=== PATIENT | male | born 1930 | race Caucasian/White ===

== ENCOUNTER → 2016-07-21 | Outpatient (CLI) | payer OTHER ==
[~2016-07-21] MED LIST: GADOBUTROL 10 ML VIAL IVP ONE
== END ==
LOC: FIMAGING 15:16
PROVIDERS: ATTEND Physician Assistant
DX: H81.49 Vertigo of central origin, unspecified ear (principal); R93.0 Abnormal findings on diagnostic imaging of skull and head, not elsewhere classified
CPT/HCPCS: 70553; A9585

== ENCOUNTER 2016-12-07 10:28 | Inpatient (IN) | payer OTHER ==
[2016-12-07] MEDS ORDERED: THROMBIN (BOVINE) 5,000 UNIT VIAL TP ONE (10:44)
[2016-12-07] MEDS ORDERED: CALCIUM CHLORIDE 1 GM/10 ML INJ ONE (10:45)
[2016-12-07] MEDS ORDERED: POLYMYXIN B SULFATE 500,000 UNIT/10 ML SYR IRR ONE (10:45)
[2016-12-07] MEDS ORDERED: LIDOCAINE 1% 2 ML INJ ID PRN (10:45)
[2016-12-07] MEDS ORDERED: LR 1,000 ML IV ONE (10:45)
[2016-12-07] MEDS ORDERED: BACITRACIN 50,000 UNITS/10 ML SYR IRR ONE (10:45)
--- NOTE | 2016-12-07 11:17 | PDANEPAE ---
ANE History of Present Illness OA hip ANE Past Medical History - Cardiovascular History Hx Hypertension: Yes Hx Arrhythmias: Yes Hx CHF / Valvular Disease: Yes - Pulmonary History Hx COPD: No Hx Asthma/Reactive Airway Disease: No Hx Recent Upper Respiratory Infection: No Hx Oxygen in Use at Home: No Hx Sleep Apnea: No Sleep Apnea Screening Result - Last Documented: Positive - Neurologic History Hx Cerebrovascular Accident: No Hx Seizures: No Hx Dementia: No - Endocrine History Hx Diabetes: No - Renal History Hx Renal Disorders: No - Liver History Hx Hepatic Disorders: No - Neurological & Psychiatric Hx Hx Neurological and Psychiatric Disorders: No - Cancer History Hx Cancer: Yes Cancer History Comment: PROSTATE - Congenital Disorder History Hx Congenital Disorders: No - GI History Hx Gastrointestinal Disorders: No - Other Health History Other Health History: NONE, BRUISES EASILY - Chronic Pain History Chronic Pain: Yes (S I JOINT) - Surgical History Prior Surgeries: SPINAL FUSION SX ANE Review of Systems Review of Systems: - Exercise capacity METS (RN): 3 METS ANE Patient History - Allergies Allergies/Adverse Reactions: No Known Allergies Allergy (Verified 12/07/16 11:05) - Home Medications Home medications: home medication list seen and reviewed Home Medications: Metoprolol Succinate Xr [Toprol Xl 50 mg (*)] 50 mg PO DAILY 11/01/15 [Last Taken 12/07/16 08:00] C/E/Zn/Cu/OM3/DHA/EPA/LUT/ZEAX [Preservision Areds 2 Softgel] 1 each PO DAILY [Last Taken Unknown] LORazepam [Ativan (*)] 0.25 mg PO DAILY PRN 11/21/16 [Last Taken Unknown] Levothyroxine [Synthroid 100 mcg (*)] 100 mcg PO DAILY06 11/21/16 [Last Taken Unknown] Multivitamins [Multivitamin (*)] 1 each PO DAILY 11/21/16 [Last Taken Unknown] Naproxen Sodium [Aleve 220 MG (*)] 220 mg PO BID PRN 11/21/16 [Last Taken Unknown] traMADol [Ultram 50 mg (*)] 25 mg PO DAILY PRN 11/21/16 [Last Taken Unknown] - Smoking Hx Smoking Status: Never smoked - Family Anes Hx Family Hx Anesthesia Complications: NONE ANE Labs/Vital Signs - Vital Signs Height: 187.96 cm Weight: 72.575 kg ANE Physical Exam - Airway Neck exam: FROM Mallampati Score: Class 2 Mouth exam: normal dental/mouth exam - Pulmonary Pulmonary: no respiratory distress - Cardiovascular Cardiovascular: regular rate and rhythym - ASA Status ASA Status: II ANE Anesthesia Plan Anesthesia Plan: spinal
[2016-12-07] MEDS ORDERED: MIDAZOLAM 2 MG/2 ML VIAL IVP ONE (11:23)
[2016-12-07] MEDS ORDERED: PROPOFOL/EMULSION 500 MG/50 ML BOTTLE IV ONE (11:38)
[2016-12-07] MEDS ORDERED: LIDOCAINE 2% 5 ML SDV ONE (11:39)
[2016-12-07] MEDS ORDERED: BUPIVACAINE/EPI 0.5% 30 ML SDV ONE (11:41)
[2016-12-07] MEDS ORDERED: ceFAZolin 2 GM/DEXTROSE 100 ML IV ONE (11:51)
[2016-12-07] MEDS ORDERED: PREGABALIN 150 MG CAP PO ONE (11:51)
[2016-12-07] MEDS ORDERED: ACETAMINOPHEN 500 MG TAB PO ONE (11:51)
[2016-12-07] MEDS ORDERED: TRANEXAMIC ACID 3,000 MG in NS 50 ML IRR ONE (11:51)
[2016-12-07] MEDS ORDERED: ROPIVACAINE 0.2% 80 MG, EPINEPHrine 0.2 MG, KETOROLAC TROMETHAMINE 30 MG, morphINE 10 M... IU ONE (11:51)
[2016-12-07] MEDS ORDERED: CEFAZOLIN 2 GM/DEXTROSE/100 ML BAG IV ONE (11:51)
--- NOTE | 2016-12-07 11:52 | PDHPUP ---
History & Physical Update H&P update statement: This history and physical update is based on an assessment of the patient which was completed after admission or registration (within 24 hours), but prior to the surgery/procedure. H&P update: H&P reviewed & patient examined, no change in patient's condition since H&P completed
[2016-12-07] MEDS ORDERED: TRANEXAMIC ACID 3,000 MG/50 ML BAG IRR ONE (12:15)
[2016-12-07] MEDS ORDERED: MAGNESIUM HYDROXIDE 30 ML UDCUP PO PRN (14:10)
[2016-12-07] MEDS ORDERED: ONDANSETRON 4 MG/2 ML VIAL IVP PRN ×2 (14:10→14:17)
[2016-12-07] MEDS ORDERED: DIPHENOXYLATE/ATROPINE LOMOTIL 1 TAB PO PRN (14:10)
[2016-12-07] MEDS ORDERED: LACTULOSE 20 GM/30 ML UDCUP PO PRN (14:10)
[2016-12-07] MEDS ORDERED: TEMAZEPAM 15 MG CAP PO PRN (14:10)
[2016-12-07] MEDS ORDERED: METOCLOPRAMIDE 10 MG/2 ML VIAL IVP PRN (14:10)
[2016-12-07] MEDS ORDERED: oxyCODONE IR 5 MG TAB PO PRN (14:10)
[2016-12-07] MEDS ORDERED: DIAZEPAM 5 MG TAB PO PRN (14:10)
[2016-12-07] MEDS ORDERED: BISACODYL 10 MG SUPP PR PRN (14:10)
[2016-12-07] MEDS ORDERED: PROMETHAZINE HCL 25 MG SUPPR PR PRN (14:10)
[2016-12-07] MEDS ORDERED: PROMETHAZINE HCL 25 MG/ML INJ IVP PRN (14:10)
[2016-12-07] MEDS ORDERED: TAPENTADOL HCL 50 MG TAB PO PRN (14:10)
[2016-12-07] MEDS ORDERED: POLYETHYLENE GLYCOL 3350 17 GM PKT PO PRN (14:10)
[2016-12-07] MEDS ORDERED: ONDANSETRON DISINTEGRATING 4 MG TAB PO PRN (14:10)
[2016-12-07] MEDS ORDERED: diphenhydrAMINE 25 MG CAP PO PRN (14:10)
--- NOTE | 2016-12-07 14:10 | POSTOPPROG ---
Post Op Note Date of Operation: 12/07/16 Surgeon: Shivani Tinoco Buying Intern: martha Anesthesiologist: hussein Anesthesia: Epidural, IV Sedation Pre-op Diagnosis: r hip oa Procedure: r silas with fluoro Inf/Abcess present in the surg proc area at time of surgery?: No Depth: Deep Incisional (Fascial) EBL: 100-500
[2016-12-07] MEDS ORDERED: LORazepam 0.5 MG TAB PO PRN (14:12)
[2016-12-07] MEDS ORDERED: NALOXONE HCL 0.4 MG/ML INJ IVP PRN (14:17)
[2016-12-07] MEDS ORDERED: fentaNYL 100 MCG/2 ML INJ IVP PRN (14:17)
[2016-12-07] MEDS ORDERED: HYDROmorphONE/DILAUDID 1 MG/ML INJ IVP PRN (14:17)
--- NOTE | 2016-12-07 14:20 | POSTANESTH ---
Post Anesthetic Evaluation Cardiovascular Status: Normal, Stable Respiratory Status: Normal, Stable Level of Consciousness/Mental Status: Alert and Oriented, Mildly Sleepy, Arousable Pain Control: Adequate, Prn Tx Ordered Nausea/Vomiting Control: Adequate, Prn Tx Ordered Complications Possibly Related to Anesthesia: None Noted
[2016-12-07] MEDS ORDERED: LR 1,000 ML IV SCH (14:30)
[2016-12-07] MEDS ORDERED: ONDANSETRON 4 MG/2 ML VIAL ONE (14:49)
[2016-12-07] MEDS ORDERED: fentaNYL 100 MCG/2 ML INJ ONE (14:49)
--- NOTE | 2016-12-07 15:29 | GOP ---
[f rep st] OPERATIVE REPORT DATE OF OPERATION: 12/07/2016 SURGEON: Shivani Tinoco MD KETTLE HAND: Jose Josue, certified P.A., whose presence was medically necessary. ANESTHESIA: By epidural plus IV sedation. PREOPERATIVE DIAGNOSIS: Right hip osteoarthritis. POSTOPERATIVE DIAGNOSIS: Right hip osteoarthritis. PROCEDURE PERFORMED: Right total hip arthroplasty with fluoroscopy. FINDINGS: INDICATIONS: This is an 86-year-old male with a long history of right hip pain worsening with use an d with time, despite multiple conservative measures. He wishes to have surgery in order to resolve t he problem. DESCRIPTION OF PROCEDURE: The patient was brought to the operating room after the right side had bee n identified as the correct side by the patient, nurse and physician. Once in the operating room, he was given an epidural nerve block. He was then placed supine on the operating room table with a wel l-padded peroneal post and both legs placed in the leg vogt with well padded heels. Once in positi on, fluoroscopy was used to ensure proper positioning of the pelvis, at which point the arch table wa s locked into place. Once locked into place, the right hip and flank were sterilely prepped and drap ed in the usual fashion using GSI solution. Once prepped and draped, an incision was made starting 2 cm lateral and inferior to the ASIS and head ing in a 15 degree posterior direction with sharp dissection carried down through the skin and subcut aneous layers. The bleeding was controlled using electrocautery. The fascia overlying the TFL was i dentified and incised in line with its fibers, with the TFL muscle belly retracted laterally. The ba se of the fascial sheath was found to have the circumflex vessels, which were also ligated. Deeper d issection was carried over the hip capsule, with blunt Cobra retractors placed in the superior and in ferior femoral neck. Then, a pointed Hohmann was placed on the anterior portion of the acetabulum. A T-incision was made through the capsule with stay sutures placed through the inferior and superior leaves, with the Cobra retractors placed within the intra-articular portion. Oscillating saw was use d to cut across the femoral neck just above the intertrochanteric line, with the leg externally rotat ed 40 degrees and a corkscrew placed in the femoral head. The femoral head was able to be removed an d was sent to the back table. The daryaar as well as the labrum around the acetabulum were removed. Sequential reamers were used, starting at a size 48 and going up to a size 43, which was noted to have good bleeding bone and good depth. A 43 trial was noted to fit securely. Therefore, a size 54 Tritanium hemispherical cluster hole shell from [employer] was put into place with its position checked under fluoroscopy. A screw was placed into the superior and posterior portion of the cup with a manhole cover placed at its base. A t which point, a 54 x 36 polyethylene liner was placed within the shell. Once in place, the leg was externally rotated to 90 degrees. With a straight Hohmann placed in the posterior portion of the fem oral neck and a blunt Cobra retractor placed anteriorly, capsular dissection was carried on the front and superior portion of the femoral neck. Once it was adequately freed, the leg was able to be brou ght into extension and abduction. A curette was used to remove the medullary bone from the proximal portion of the femur, and a rongeur was used to remove the superior portion of the femoral neck. Seq uential broaches were then used up to a size 6, which was noted to fit securely. A trial reduction w as performed. Fluoroscopy was used to ensure proper fill of the proximal femur as well as good lengt h. The hip was then re-dislocated. It was found that therefore, a size 6, 127 degree neck Accolade II stem from [place] was put into place. Reduction was again performed to ensure proper lengthening and once this was ensured, the leg was re-dislocated, the trunnion was washed and dried, and a 36, +5 metal femoral head was put into place. Once in place, the hip was reduced. Tranexamic acid was alonso willy within the hip after a joint cocktail was injected around the posterior capsule, the anterior jonathon tabulum and the proximal femur. The capsule was then closed using 0 Vicryl suture in a qqteel-tr-fuqza type stitch to close the capsu lar layer. Plasma gel was placed intra-articularly. Zero Vicryl was then used to close the fascial sheath overlying the TFL, with plasma gel placed in the knee and fascial sheath, as well as tranexami c acid. Zero Vicryl and 2-0 Vicryl suture were then used to close subcutaneous layers, with a 3-0 V- Loc suture in a running subcuticular stitch used to close the skin. The wound was then dressed with Steri-Strips, Xeroform, 4x4s, and Tegaderm. He was completely undraped in the operating room. Both legs were taken out of leg vogt. The peroneal post was removed. His leg lengths were noted to be even. He was then transferred onto a stretcher and sent to the recovery room in good condition. /[id number]/MODL
[2016-12-07] MEDS: ACETAMINOPHEN 325 MG TAB PO SCH ×2 (18:06→23:07)
[2016-12-07] MEDS: traMADol 50 MG TAB PO SCH ×2 (18:06→23:07)
[2016-12-07] MEDS: KETOROLAC 30 MG/1 ML SDV IVP SCH ×2 (18:07→23:07)
[2016-12-07] MEDS: SENNOSIDES/DOCUSATE SODIUM TAB PO SCH (20:46)
[2016-12-07] MEDS: FAMOTIDINE 20 MG TAB PO SCH (20:46)
[2016-12-07] MEDS: ceFAZolin 2 GM/DEXTROSE 100 ML IV SCH (21:00)
[2016-12-08 05:01] LABS: HEMATOCRIT 36.4 % (40.0-51.0); HEMOGLOBIN 12.2 g/dL (13.7-17.5)
[2016-12-08] MEDS: ceFAZolin 2 GM/DEXTROSE 100 ML IV SCH (05:02)
[2016-12-08] MEDS: LEVOTHYROXINE 100 MCG TAB PO SCH (05:03)
[2016-12-08] MEDS: ACETAMINOPHEN 325 MG TAB PO SCH ×3 (05:03→17:43)
[2016-12-08] MEDS: traMADol 50 MG TAB PO SCH ×3 (05:03→17:43)
[2016-12-08] MEDS: KETOROLAC 30 MG/1 ML SDV IVP SCH ×3 (05:04→17:44)
[2016-12-08] MEDS ORDERED: LORazepam 2 MG/ML INJ IV PRN (12:35)
--- NOTE | 2016-12-08 12:41 | SOAPPROG ---
SOAP Progress Note Assessment/Plan: Assessment: Plan: - hospitalist consult -will follow 12/08/16 12:40 Subjective: Pt reporting pain this AM after swallowing breakfast. Can get water down but causes severe epigastric/eshoph pain. Objective: Vital Signs Temp Pulse Resp BP Pulse Ox 36.7 C 83 14 154/80 H 97 12/08/16 12:00 12/08/16 12:00 12/08/16 12:00 12/08/16 12:00 12/08/16 12:00 Laboratory Results 12/08/16 04:51 12/07/16 12/08/16 12/09/16 05:59 05:59 05:59 Intake Total 1600 Output Total 450 200 Balance 1150 -200 wound cdi, calf nt, nvi - Time Spent With Patient Time Spent With Patient: 20 - Pending Discharge Pending Discharge Within 24 Hours: No Pending Discharge Within 48 Hours: No ICD10 Worksheet Patient Problems: Problems Problem Status Onset Back pain Acute
[2016-12-08] MEDS: CALCIUM CARBONATE 500 MG CHEWABLE TAB PO PRN ×2 (12:57→17:38)
--- NOTE | 2016-12-08 14:50 | ASMTCMCOM ---
CM Note CM Note Notes: OT rec home vs. HHC vs. SNF, PT eval pending. Pt was not able to participate in PT due to pain. PT Jessenia alerts this CM pt may need SNF. Pt lives alone in tri-level home. CM to follow for d/c needs. Date Signed: 12/08/2016 02:50 PM Electronically Signed By:ELY Hernandez
[2016-12-08] MEDS ORDERED: NITROGLYCERIN 0.4 MG BTL SL PRN (15:06)
[2016-12-08] MEDS: RIVAROXABAN 10 MG TAB PO SCH (15:20)
[2016-12-08] MEDS: METOPROLOL SUCCINATE XR 50 MG TAB PO SCH (15:20)
[2016-12-08] MEDS: SENNOSIDES/DOCUSATE SODIUM TAB PO SCH ×2 (15:20→21:44)
[2016-12-08] MEDS: FAMOTIDINE 20 MG TAB PO SCH ×2 (15:20→21:17)
--- NOTE | 2016-12-08 15:51 | GCON ---
[f rep st] ADDENDUM: ekg (interp by me) w no ischemic changes CONSULTATION DATE OF CONSULTATION: 12/08/2016 HISTORY OF PRESENT ILLNESS: The patient is a pleasant 86-year-old gentleman with a history of atrial fibrillation, degenerative arthritis, and hypertension , who is postop day 1 from an elective hip arthroplasty. I am asked to see him to evaluate the management of suspected esophageal spasm. Patient was eating eggs and drinking water and developed some sharp pain while doing that, consistent with esophageal spasm. That was a few hours ago. He was given Ativan, and he is essentially obtunded but arousable at this point in time. He says the pain may have gone to his left jaw. He is not short of breath. He is not diaphoretic. He does not have a history of coronary disease. He notes he has had esophageal spasms which were similar in nature, although less in severity prior in his life. He states pain is well controlled from his hip arthroplasty. He does take Ativan 0.25 mg at home and he received what appears to be a milligram today. REVIEW OF SYSTEMS: Complete 10-point review of systems conducted and negative except as noted in the HPI. PAST MEDICAL HISTORY: Atrial fibrillation, hypertension, hypothyroidism, disk herniation, bladder cancer, spinal fusion, degenerative arthritis, and a prostatectomy in 1973. FAMILY HISTORY: His father had diabetes and mother had a stroke at age 66. SOCIAL HISTORY: Lives alone. Minimal alcohol. No tobacco. FAMILY HISTORY: His parents are . ALLERGIES: He has no known drug allergies. HOME MEDICATIONS: PreserVision, multivitamin, naproxen, tramadol, levothyroxine , lorazepam 0.25 daily p.r.n., metoprolol-XL 50. He is on a long list of medications that include Benadryl, Ativan, Valium, Reglan, ondansetron, and he is on DVT prophylaxis with rivaroxaban. PHYSICAL EXAMINATION: VITAL SIGNS: Temp 36.7, blood pressure 154/80, pulse 83 , breathing 14 times a minute, 97% on 2 L. GENERAL: Fairly medicated, arousable, drifting off to sleep during our conversation. HEENT: Sclerae anicteric. Oropharynx clear. Mucous membranes moist. NECK: Supple without lymphadenopathy or JVD. LUNGS: Clear to auscultation bilaterally. HEART: S1 , S2. CHEST: Soft. No crepitus. ABDOMEN: Soft, nontender, nondistended. LOWER EXTREMITIES: No edema. Calves nontender. SKIN: Without rash. NEUROLOGIC: Nonfocal. LABORATORY DATA: Hemoglobin and hematocrit are 12 and 36; his baseline is 15 and 43. Historically he has a normal BUN and creatinine. There is no imaging. I have discussed the case with Amrik Josue, the surgical PA. ASSESSMENT AND PLAN: An 86-year-old gentleman with apparent esophageal spasm. 1. Esophageal spasm: I suspect that is the answer. p.r.n. nitroglycerin would be the drug of choice for esophageal spasm. I have written him for that. 2. Chest pain in an elderly gentleman postop: I will check an EKG. I think that this is unlikely, but it is appropriate to rule out acute multiple in the setting of chest pain in an elderly gentleman. 3. Obtundation: This is medication misadventure. I have taken the liberty of discontinuing his Valium, his Ativan, his Benadryl, his temazepam, and Reglan. I will lessen his daily dose of Ativan. 4. Prophylaxis: Pharmacologic prophylaxis as you are with rivaroxaban. 5. History of atrial fibrillation: He is clinically in sinus right now. DISPOSITION: Inpatient status. Thanks this consultation. Hospital Medicine will follow. I will follow up an EKG. /[id number]/MODL MTDD
--- NOTE | 2016-12-08 16:01 | CPEKG ---
Heart Rate: 83 RR Interval: 723 P-R Interval: 168 QRSD Interval: 104 QT Interval: 380 QTC Interval: 447 P [place]: 71 QRS [place]: 60 T Wave [place]: 12 EKG Severity - NORMAL ECG - EKG Impression: SINUS RHYTHM Electronically Signed By: Lauro Garduno 08-Dec-2016 17:26:32
[2016-12-08] MEDS: NS 1,000 ML IV SCH (17:38)
[2016-12-09] MEDS: ACETAMINOPHEN 325 MG TAB PO SCH ×4 (00:35→17:48)
[2016-12-09] MEDS: traMADol 50 MG TAB PO SCH ×4 (00:35→17:46)
[2016-12-09] MEDS: KETOROLAC 30 MG/1 ML SDV IVP SCH ×4 (00:35→18:25)
[2016-12-09] MEDS: CALCIUM CARBONATE 500 MG CHEWABLE TAB PO PRN (03:06)
[2016-12-09 04:49] LABS: HEMOGLOBIN 12.8 g/dL (13.7-17.5)
[2016-12-09] MEDS: LEVOTHYROXINE 100 MCG TAB PO SCH (05:39)
[2016-12-09] MEDS: NS 1,000 ML IV SCH ×3 (05:51→21:54)
[2016-12-09] MEDS ORDERED: GLUCAGON,HUMAN RECOMBINANT 1 MG VIAL IVP ONE (10:17)
--- NOTE | 2016-12-09 10:56 | HOSPPROG ---
Hospitalist Progress Note Assessment/Plan: 86 yo M htn and af postop day 2 from elective hip arthroplasty. hosp course c/p odynophagia and delirium delirium: he was encephalopathic yesterday 2/2 ativan alert today i have dc'd many prns given age odynophagia: persists trial of ntg not successful thus far trial of glucagon pending i have discussed w GI and they will see later for possible endoscopy pain: well controlled cp: esophageal ekg non ischemic af: in sinus proph: NoAC Subjective: still w pain and odynophagia. ekg non ischemic. case d/w dr gutierrez. alert Objective: Vital Signs Temp Pulse Resp BP Pulse Ox 36.7 C 103 H 16 168/88 H 94 12/09/16 07:59 12/09/16 07:59 12/09/16 07:59 12/09/16 07:59 12/09/16 07:59 Laboratory Results 12/09/16 04:33 12/08/16 12/09/16 12/10/16 05:59 05:59 05:59 Intake Total 1600 100 250 Output Total 450 850 Balance 1150 -750 250 - Physical Exam Constitutional: no apparent distress, appears nourished Eyes: PERRL, anicteric sclera Ears, Nose, Mouth, Throat: hearing normal, No moist mucous membranes Cardiovascular: regular rate and rhythym, no murmur, rub, or gallop, No tachycardia Respiratory: no respiratory distress, no rales or rhonchi Gastrointestinal: normoactive bowel sounds, soft, non-tender abdomen Genitourinary: no bladder fullness, No mcghee in urethra Skin: warm, normal color Musculoskeletal: full muscle strength, no muscle tenderness Neurologic: AAOx3, sensation intact bilaterally Psychiatric: interacting appropriately ICD10 Worksheet Patient Problems: Problems Problem Status Onset Back pain Acute
--- NOTE | 2016-12-09 12:23 | SOAPPROG ---
[facility] Progress Note Assessment/Plan: Assessment: Plan: - awaiting endoscopy - will follow 12/08/16 12:40 12/09/16 12:23 Subjective: Still reporting esoph pain, hip is doing well Objective: Vital Signs Temp Pulse Resp BP Pulse Ox 36.7 C 103 H 16 168/88 H 94 12/09/16 07:59 12/09/16 07:59 12/09/16 07:59 12/09/16 07:59 12/09/16 07:59 Laboratory Results 12/09/16 04:33 12/08/16 12/09/16 12/10/16 05:59 05:59 05:59 Intake Total 1600 100 250 Output Total 450 850 Balance 1150 -750 250 Dressing CDI, calf NT, neg harjeet's nvi - Time Spent With Patient Time Spent With Patient: 15 - Pending Discharge Pending Discharge Within 24 Hours: No Pending Discharge Within 48 Hours: No ICD10 Worksheet Patient Problems: Problems Problem Status Onset Back pain Acute
[2016-12-09] MEDS ORDERED: LIDOCAINE 2% VISCOUS 15 ML UDCUP PO PRN ×2 (13:23→13:44)
[2016-12-09] MEDS: SENNOSIDES/DOCUSATE SODIUM TAB PO SCH ×2 (13:30→21:55)
[2016-12-09] MEDS ORDERED: MAG HYDROX/AL HYDROX/SIMETH 30 ML UDCUP PO PRN (13:43)
--- NOTE | 2016-12-09 16:10 | ASMTCMCOM ---
CM Note CM Note Notes: Pt agreeable to SNF per therapy rec, #1 choice if [facility] who will not have bed if pt d/c tomorrow but referral sent. [facility] sent referrals. Date Signed: 12/09/2016 04:09 PM Electronically Signed By:ELY Hernandez
[2016-12-09] MEDS: METOPROLOL SUCCINATE XR 50 MG TAB PO SCH (17:31)
[2016-12-09] MEDS: RIVAROXABAN 10 MG TAB PO SCH (17:33)
[2016-12-09] MEDS: FAMOTIDINE 20 MG TAB PO SCH ×2 (17:47→21:55)
--- NOTE | 2016-12-09 18:57 | GCON ---
[f rep st] CONSULTATION DATE OF CONSULTATION: 12/09/2016 REFERRING PHYSICIAN: Dr. Melendrez CHIEF COMPLAINT: Chest pain. HISTORY OF PRESENT ILLNESS: I am asked to see this patient in consultation by Dr. Melendrez for chief c omplaint of chest pain. The patient is an 86-year-old who was admitted earlier this week to undergo elective hip arthroplasty which he had obtained and then yesterday noted onset of chest pain suspecte d to be from esophageal spasm. Stated this happened while eating eggs, that he "choked," felt that t he eggs would not go down and has been having chest pain since. He denies prior history of dysphagia or GERD, although patient is somewhat sedated and it is unclear how detailed the history is. He sta akil that the pain overall is much better but he describes that he is unable to eat because it hurts. However, he is able to handle his saliva well. He states he might have had an endoscopy years ago b ut is vague about the details. ALLERGIES: No known drug allergies. HOME MEDICATIONS: Multivitamin, naproxen, tramadol, levothyroxine, lorazepam, metoprolol. He takes p.r.n. medicines including Benadryl, Ativan, Valium, Reglan. PAST MEDICAL HISTORY: Notable for atrial fibrillation, hypertension, hypothyroidism, disk herniation , bladder cancer, spinal fusion, degenerative joint disease, prostatectomy 1973. FAMILY HISTORY: Mother has stroke. Father had diabetes. SOCIAL HISTORY: He lives alone. Drinks occasional alcohol. REVIEW OF SYSTEMS: I performed a complete review of systems, which is negative except for the pertin ent positives and negatives noted above in the HPI. PHYSICAL EXAM: VITALS: 96.7, BP 165/80, pulse 103. GENERAL: The patient is drowsy but arousable. EYES: Non scleral icterus. HENT: No oral lesion. NECK: No neck crepitus. CARDIOVASCULAR: Regu lar rate, rhythm. CHEST: Clear to auscultation. ABDOMEN: Positive bowel sounds. Soft and nontend er. NEURO: Grossly nonfocal. SKIN: No rashes. LABORATORY DATA: Shows stable hemoglobin at 12.8. ASSESSMENT: Patient has acute onset of chest pain. States having odynophagia and feels that food is not going down; however, he does not have the appearance of acute food bolus impaction as he is havi ng no trouble handling his own secretions. Differential diagnosis would include esophagitis, conside r pill esophagitis, infectious such as brittny or viral or reflux. The patient could have underlying structural abnormality such as stricture or malignancy. I do agree with upper endoscopy for evaluat ion. Due to the patient's discomfort, can give a trial of GI cocktail with viscous lidocaine and Myl anta to see if this will provide relief. If not, then we will arrange for upper endoscopy. We will put patient n.p.o. other than medications. Thanks for this consult. /[id number]/MODL
[2016-12-10] MEDS: KETOROLAC 30 MG/1 ML SDV IVP SCH ×4 (00:29→17:18)
[2016-12-10] MEDS: ACETAMINOPHEN 325 MG TAB PO SCH ×3 (00:40→12:57)
[2016-12-10] MEDS: traMADol 50 MG TAB PO SCH ×4 (00:41→16:56)
[2016-12-10] MEDS: NS 1,000 ML IV SCH (04:14)
[2016-12-10] MEDS: LEVOTHYROXINE 100 MCG TAB PO SCH (05:59)
[2016-12-10] MEDS: FAMOTIDINE 20 MG TAB PO SCH ×2 (08:52→22:47)
[2016-12-10] MEDS: SENNOSIDES/DOCUSATE SODIUM TAB PO SCH ×2 (08:52→22:47)
[2016-12-10] MEDS: METOPROLOL SUCCINATE XR 50 MG TAB PO SCH (08:52)
[2016-12-10] MEDS ORDERED: LORazepam 2 MG/ML INJ IVP ONE (12:30)
--- NOTE | 2016-12-10 12:52 | ASMTCMCOM ---
CM Note CM Note Notes: Pt will have upper endoscopy today and is not ready for DC. Pt's 1st choice of SNF, [facility], currently has a bed for pt. They asked that C/M check with them prior to DC. C/M will cntinue to follow. Date Signed: 12/10/2016 12:51 PM Electronically Signed By:Latonya Quinteros LCSW
--- NOTE | 2016-12-10 13:03 | SOAPPROG ---
[facility] Progress Note Assessment/Plan: Assessment: Plan: Subjective: states his hip is sore but PT has gone well swallowing has been the real problem dressing C&D with foot NVI to endoscopy today advance diet as per GI Objective: Vital Signs Temp Pulse Resp BP Pulse Ox 36.8 C 93 20 180/106 H 94 12/10/16 11:21 12/10/16 11:21 12/10/16 11:21 12/10/16 11:21 12/10/16 11:21 Laboratory Results 12/09/16 04:33 12/09/16 12/10/16 12/11/16 05:59 05:59 05:59 Intake Total 100 3350 Output Total 850 200 Balance -750 3150 ICD10 Worksheet Patient Problems: Problems Problem Status Onset Back pain Acute
--- NOTE | 2016-12-10 13:33 | PDANEPAE ---
ANE History of Present Illness 86 yo male with difficulty swallowing since POD #1 after YANI. ANE Past Medical History - Cardiovascular History Hx Hypertension: Yes Hx Arrhythmias: Yes Hx CHF / Valvular Disease: Yes - Pulmonary History Hx COPD: No Hx Asthma/Reactive Airway Disease: No Hx Recent Upper Respiratory Infection: No Hx Oxygen in Use at Home: No Hx Sleep Apnea: No Sleep Apnea Screening Result - Last Documented: Positive - Neurologic History Hx Cerebrovascular Accident: No Hx Seizures: No Hx Dementia: No - Endocrine History Hx Diabetes: No Hypothyroid: Yes - Renal History Hx Renal Disorders: No - Liver History Hx Hepatic Disorders: No - Neurological & Psychiatric Hx Hx Neurological and Psychiatric Disorders: No - Cancer History Hx Cancer: Yes Cancer History Comment: PROSTATE - Congenital Disorder History Hx Congenital Disorders: No - GI History Hx Gastrointestinal Disorders: No - Other Health History Other Health History: NONE, BRUISES EASILY - Chronic Pain History Chronic Pain: Yes (S I JOINT) - Surgical History Prior Surgeries: SPINAL FUSION SX ANE Review of Systems Review of Systems: - Exercise capacity METS (RN): 3 METS - Systems Gastrointestinal: Reports: other (difficulty swallowing) ANE Patient History - Allergies Allergies/Adverse Reactions: No Known Allergies Allergy (Verified 12/07/16 11:05) - Home Medications Home medications: home medication list seen and reviewed Home Medications: Metoprolol Succinate Xr [Toprol Xl 50 mg (*)] 50 mg PO DAILY 11/01/15 [Last Taken 12/07/16 08:00] C/E/Zn/Cu/OM3/DHA/EPA/LUT/ZEAX [Preservision Areds 2 Softgel] 1 each PO DAILY [Last Taken Unknown] LORazepam [Ativan (*)] 0.25 mg PO DAILY PRN 11/21/16 [Last Taken Unknown] Levothyroxine [Synthroid 100 mcg (*)] 100 mcg PO DAILY06 11/21/16 [Last Taken Unknown] Multivitamins [Multivitamin (*)] 1 each PO DAILY 11/21/16 [Last Taken Unknown] Naproxen Sodium [Aleve 220 MG (*)] 220 mg PO BID PRN 11/21/16 [Last Taken Unknown] traMADol [Ultram 50 mg (*)] 25 mg PO DAILY PRN 11/21/16 [Last Taken Unknown] - NPO status NPO Since - Liquids (Date): 12/07/16 NPO Since - Liquids (Time): 09:00 NPO Since - Solids (Date): 12/10/16 NPO Since - Solids (Time): 09:00 - Anes Hx Anes Hx: no prior problems - Smoking Hx Smoking Status: Never smoked Marijuana use: No - Family Anes Hx Family Hx Anesthesia Complications: NONE ANE Labs/Vital Signs - Labs Result Diagrams: 12/09/16 04:33 - Labs - CBC HGB: anemia - Vital Signs Blood Pressure: 187/113 Heart Rate: 101 Respiratory Rate: 20 O2 Sat (%): 95 Height: 187.96 cm Weight: 72.575 kg ANE Physical Exam - Airway Neck exam: FROM Mallampati Score: Class 2 Mouth exam: normal dental/mouth exam - Pulmonary Pulmonary: clear to auscultation - Cardiovascular Cardiovascular: regular rate and rhythym - ASA Status ASA Status: III ANE Anesthesia Plan Anesthesia Plan: GA with mask Lines/Monitors: additional IV ( current 22 G PIV running slowly) Total IV Anesthesia: Yes
[2016-12-10] MEDS ORDERED: LIDOCAINE 2% 5 ML SDV ONE ×2 (13:41)
[2016-12-10] MEDS ORDERED: PROPOFOL 200 MG/20 ML VIAL ONE ×2 (13:41)
[2016-12-10] MEDS ORDERED: ROCURONIUM 50 MG/5 ML VIAL ONE (13:52)
[2016-12-10] MEDS ORDERED: SUCCINYLCHOLINE CHLORIDE*ANESTHESIA ONLY*200 MG/10 ML SYR IVP ONE (13:54)
[2016-12-10] MEDS ORDERED: PHENYLEPHRINE HCL 100 MCG/ML SYR ONE (14:07)
--- NOTE | 2016-12-10 14:47 | GIREPORT ---
[facility] Surgical Services - Endoscopy Department Patient Name: Phillip Cannon Procedure Date: 12/10/2016 1:10 PM Patient Type: Inpatient Attending MD/ ER Physician: Jayro Low MD Procedure: Upper GI endoscopy Indications: Dysphagia Providers: Jayro Low MD Medicines: General Anesthesia Complications: No immediate complications. Description of Procedure: After obtaining informed consent, the endoscope was passed under direct vision. Throughout the procedure, the patient's blood pressure, pulse, and oxygen saturations were monitored continuous ly. The Endoscope was introduced through the mouth, and advanced to the second part of duodenum. The Endoscope was introduced through the mouth, and advanced to the. The upper GI endoscopy was accomplished without difficulty. The patient tolerated the procedure well. Findings: Food was found in the middle third of the esophagus and in the lower third of the esophagus. Sco pe was removed, patient was intubated to protect his airway and therapeutic endoscope was inserted. Removal of food was accomplished via aggressive lavage and aspiration. A medium-sized hiatal hernia was present which was impacted with food; much of which was pased i nto gastric lumen with the scope tip. The entire examined stomach was normal. The examined duodenum was normal. Scope was removed and food particulate mater was aspirated clear of orophareyanx with tonsil tip suction and confirmed with enodscope. Estimated Blood Loss: Estimated blood loss: none. Post Op Diagnosis: - Food in the middle third of the esophagus and in the lower third of the esophagus. Removal was successful after aggressive lavage and aspiration. Ectatic esophagus consistant with Achalsia vs extrinsic compression of distal esophagus. - Medium-sized hiatal hernia, impacted with food; much of which was advanced into stomach. - Normal stomach. - Normal examined duodenum. Recommendation: - [facility]. - NPO. - Perform a CT scan (computed tomography) of chest with contrast and abdomen with contrast tomor row. Attending Participation: I personally performed the entire procedure. Jaryo Low MD Jayro Low MD 12/10/2016 2:47:08 PM Number of Addenda: 0 Note Initiated On: 12/10/2016 1:10 PM [email or web address]
[2016-12-10] MEDS ORDERED: ONDANSETRON 4 MG/2 ML VIAL IVP PRN (14:52)
[2016-12-10] MEDS ORDERED: NALOXONE HCL 0.4 MG/ML INJ IVP PRN (14:52)
[2016-12-10] MEDS ORDERED: fentaNYL 100 MCG/2 ML INJ IVP PRN (14:52)
--- NOTE | 2016-12-10 14:54 | POSTANESTH ---
Post Anesthetic Evaluation Cardiovascular Status: Normal, Stable Respiratory Status: Similar to Pre-op Cond., Other, See Comment (coughing) Level of Consciousness/Mental Status: Can Participate in Eval, Moderately Sleepy Pain Control: Adequate, Prn Tx Ordered Nausea/Vomiting Control: Adequate, Prn Tx Ordered Complications Possibly Related to Anesthesia: None Noted
[2016-12-10] MEDS ORDERED: LABETALOL HCL 5 MG/ML 20 ML MDV ONE (15:07)
[2016-12-10] MEDS: LABETALOL HCL 50 MG/10 ML SYR IVP PRN ×2 (15:09→15:33)
--- NOTE | 2016-12-10 16:28 | HOSPPROG ---
Hospitalist Progress Note Assessment/Plan: 86 yo M htn and af postop day 2 from elective hip arthroplasty. hosp course c/p odynophagia and delirium delirium: he was encephalopathic yesterday 2/2 ativan alert today i have dc'd many prns given age odynophagia: 2/2 food impaction and hiatal hernia npo x mouth swabs CT in AM htn: prn meds pain: well controlled cp: esophageal ekg non ischemic af: in sinus proph: switch to [facility]mwh Subjective: egd w impacted food adn hiatal hernia. case d/w dr sepulveda Objective: Vital Signs Temp Pulse Resp BP Pulse Ox 36.9 C 83 16 148/91 H 97 12/10/16 15:12 12/10/16 16:08 12/10/16 16:08 12/10/16 16:08 12/10/16 16:08 Laboratory Results 12/09/16 04:33 12/09/16 12/10/16 12/11/16 05:59 05:59 05:59 Intake Total 100 3350 600 Output Total 850 200 260 Balance -750 3150 340 - Physical Exam Constitutional: no apparent distress, appears nourished Eyes: PERRL, anicteric sclera Ears, Nose, Mouth, Throat: moist mucous membranes, hearing normal, ears appear normal Cardiovascular: regular rate and rhythym, no murmur, rub, or gallop Respiratory: no respiratory distress, no rales or rhonchi Gastrointestinal: normoactive bowel sounds, soft, non-tender abdomen Genitourinary: no bladder fullness, No mcghee in urethra Skin: warm, normal color Musculoskeletal: full muscle strength, no muscle tenderness Neurologic: AAOx3 ICD10 Worksheet Patient Problems: Problems Problem Status Onset Back pain Acute
[2016-12-10] MEDS ORDERED: hydrALAZINE 20 MG/ML VIAL IVP PRN (16:29)
[2016-12-10] MEDS: ENOXAPARIN 40 MG/0.4 ML SYR SC SCH (17:19)
[2016-12-10] MEDS: D5W 1/2 NS 1,000 ML IV SCH (17:21)
[2016-12-11] MEDS: traMADol 50 MG TAB PO SCH ×4 (01:06→19:40)
[2016-12-11] MEDS: KETOROLAC 30 MG/1 ML SDV IVP SCH ×4 (01:16→18:40)
--- NOTE | 2016-12-11 03:19 | SOAPPROG ---
SOAP Progress Note Assessment/Plan: Assessment: 1. Distal esophageal obstruction; secondary to Achalasia vs. extrinsic compression from occult tumor. Plan: 1. ABD/Chest CT this morning. 2. Consider TPN depending on results of CT. Jayro Low MD 12/11/16 03:16 Subjective: CC: esophageal obstruction. Interval HPI: Patient without further chest pain or dysphagia. Handling secretions. Hungry and weak but NPO at present. Objective: Vital Signs Temp Pulse Resp BP Pulse Ox 37.1 C 87 16 146/74 H 96 12/11/16 01:11 12/11/16 01:11 12/11/16 01:11 12/11/16 01:11 12/11/16 01:11 Laboratory Results 12/09/16 04:33 12/09/16 12/10/16 12/11/16 05:59 05:59 05:59 Intake Total 100 3350 600 Output Total 850 200 260 Balance -750 3150 340 Physical Exam - Physical Exam General Appearance: alert, no apparent distress Respiratory: lungs clear, normal breath sounds Cardiac/Chest: regular rate, rhythm Abdomen: normal bowel sounds, non-tender, soft Skin: normal color, warm/dry Neuro/Psych: normal mood/affect, oriented x 3 ICD10 Worksheet Patient Problems: Problems Problem Status Onset Back pain Acute
[2016-12-11] MEDS: D5W 1/2 NS 1,000 ML IV SCH (05:43)
[2016-12-11] MEDS: LEVOTHYROXINE 100 MCG TAB PO SCH (05:48)
[2016-12-11] MEDS: SENNOSIDES/DOCUSATE SODIUM TAB PO SCH ×2 (07:41→23:20)
[2016-12-11] MEDS: METOPROLOL SUCCINATE XR 50 MG TAB PO SCH (07:41)
[2016-12-11] MEDS: FAMOTIDINE 20 MG TAB PO SCH ×2 (07:41→23:19)
[2016-12-11] MEDS: ENOXAPARIN 40 MG/0.4 ML SYR SC SCH (08:05)
[2016-12-11 09:37] LABS: ANION GAP 7 mEq/L (8-16); CALCIUM 7.7 mg/dL (8.5-10.4); CARBON DIOXIDE 22 mEq/l (22-31); CHLORIDE 103 mEq/L (97-110); CREATININE 0.7 mg/dL (0.7-1.3); GLOMERULAR FILTRATION RATE > 60; GLUCOSE 107 mg/dL (70-100); POTASSIUM 3.2 mEq/L (3.5-5.2); SODIUM 132 mEq/L (134-144)
[2016-12-11] MEDS ORDERED: IOPAMIDOL (ISOVUE-300) 100 ML BTL ONE (10:28)
--- NOTE | 2016-12-11 12:15 | SOAPPROG ---
SOAP Progress Note Assessment/Plan: Assessment: Plan: Subjective: not in room await CT results cont PT appreciate GI help Objective: Vital Signs Temp Pulse Resp BP Pulse Ox 36.8 C 88 16 152/83 H 96 12/11/16 07:43 12/11/16 07:43 12/11/16 07:43 12/11/16 07:43 12/11/16 07:43 Laboratory Results 12/09/16 04:33 12/11/16 08:32 12/10/16 12/11/16 12/12/16 05:59 05:59 05:59 Intake Total 3350 600 Output Total 200 260 Balance 3150 340 ICD10 Worksheet Patient Problems: Problems Problem Status Onset Back pain Acute
--- NOTE | 2016-12-11 12:34 | HOSPPROG ---
Hospitalist Progress Note Assessment/Plan: 86 yo Male new to my care 12/11 with htn and af postop day 3 from elective hip arthroplasty. hosp course c/p odynophagia and delirium delirium secondary to ativan (improved) odynophagia: 2/2 food impaction and hiatal hernia npo x mouth swabs CT chest/abd/pelvis pending GI note reviewed htn: prn meds pain: well controlled cp: esophageal ekg non ischemic af: in sinus proph: lmwh dispo: start feeding soon. to snf once cleared Subjective: wants to eat. denies chest pain. feels weak from not eating Objective: Vital Signs Temp Pulse Resp BP Pulse Ox 36.8 C 82 16 164/92 H 93 12/11/16 07:43 12/11/16 12:00 12/11/16 12:00 12/11/16 12:00 12/11/16 12:00 Laboratory Results 12/09/16 04:33 12/11/16 08:32 12/10/16 12/11/16 12/12/16 05:59 05:59 05:59 Intake Total 3350 600 Output Total 200 260 Balance 3150 340 - Physical Exam Constitutional: no apparent distress, appears nourished, not in pain Cardiovascular: regular rate and rhythym, no murmur, rub, or gallop Respiratory: no respiratory distress, no rales or rhonchi, clear to auscultation Gastrointestinal: normoactive bowel sounds, No tenderness, No guarding, No rebound ICD10 Worksheet Patient Problems: Problems Problem Status Onset Back pain Acute
[2016-12-11] MEDS: LORazepam 2 MG/ML INJ IVP PRN (15:36)
[2016-12-12] MEDS: KETOROLAC 30 MG/1 ML SDV IVP SCH ×3 (00:34→12:31)
[2016-12-12] MEDS: traMADol 50 MG TAB PO SCH ×3 (00:50→12:32)
[2016-12-12] MEDS: LORazepam 2 MG/ML INJ IVP PRN (02:10)
[2016-12-12] MEDS: LEVOTHYROXINE 100 MCG TAB PO SCH (06:06)
[2016-12-12] MEDS: METOPROLOL SUCCINATE XR 50 MG TAB PO SCH (08:25)
[2016-12-12] MEDS: FAMOTIDINE 20 MG TAB PO SCH (08:59)
[2016-12-12] MEDS: SENNOSIDES/DOCUSATE SODIUM TAB PO SCH (08:59)
[2016-12-12] MEDS: ENOXAPARIN 40 MG/0.4 ML SYR SC SCH (09:00)
[2016-12-12 11:02] VITALS: PULSE 83; RESP 16; TEMP 97.7; O2SAT 94
[2016-12-12 11:03] VITALS: BP 168/103
--- NOTE | 2016-12-12 12:19 | SOAPPROG ---
[facility] Progress Note Assessment/Plan: Assessment: Plan: d/c to rehab 12/08/16 12:40 12/09/16 12:23 12/12/16 12:18 Subjective: Doing well, feels ready to go to rehab Objective: Vital Signs Temp Pulse Resp BP Pulse Ox 36.5 C 83 16 168/103 H 94 12/12/16 11:00 12/12/16 11:00 12/12/16 11:00 12/12/16 11:03 12/12/16 11:00 Laboratory Results 12/09/16 04:33 12/11/16 08:32 12/11/16 12/12/16 12/13/16 05:59 05:59 05:59 Intake Total 600 1290 240 Output Total 260 800 300 Balance 340 490 -60 dressing cdi, calf nt, nvi - Time Spent With Patient Time Spent With Patient: 15 - Pending Discharge Pending Discharge Within 24 Hours: Yes Pending Discharge Within 48 Hours: No Pending Discharge Date: 12/13/16 Pending Discharge Time: 11:00 ICD10 Worksheet Patient Problems: Problems Problem Status Onset Back pain Acute
--- NOTE | 2016-12-12 12:23 | PDIAF ---
- Diagnosis Code Status: Full Code - Medication Management Discharge Medications: Medications to Continue on Transfer Metoprolol Succinate Xr [Toprol Xl 50 mg (*)] 50 mg PO DAILY 11/01/15 [Last Taken 12/07/16 08:00] C/E/Zn/Cu/OM3/DHA/EPA/LUT/ZEAX [Preservision Areds 2 Softgel] 1 each PO DAILY [Last Taken Unknown] LORazepam [Ativan (*)] 0.25 mg PO DAILY PRN 11/21/16 [Last Taken Unknown] Levothyroxine [Synthroid 100 mcg (*)] 100 mcg PO DAILY06 11/21/16 [Last Taken Unknown] Multivitamins [Multivitamin (*)] 1 each PO DAILY 11/21/16 [Last Taken Unknown] Naproxen Sodium [Aleve 220 MG (*)] 220 mg PO BID PRN 11/21/16 [Last Taken Unknown] traMADol [Ultram 50 mg (*)] 25 mg PO DAILY PRN 11/21/16 [Last Taken Unknown] Enoxaparin [Lovenox 40 MG (*)] 40 mg SC DAILY syr 12/12/16 [Last Taken Unknown] Sennosides/Docusate Sodium [Senokot-S] 1 - 2 tab PO BID tab 12/12/16 [Last Taken Unknown] celeCOXIB [Celebrex (*)] 200 mg PO DAILY cap 12/12/16 [Last Taken Unknown] oxyCODONE IR [Oxycodone Ir (*)] 5 - 10 mg PO Q3HRS PRN tab 12/12/16 [Last Taken Unknown] traMADol [Ultram 50 mg (*)] 50 mg PO Q6HRS tab 12/12/16 [Last Taken Unknown] Discharge Medications: Refer to the Discharge Home Medication list for PRN reason. PICC Care - Routine: N/A - Orders Services needed: Physical Therapy, Occupational Therapy Diet Recommendation: no restrictions on diet Diet Texture: Dysphagia 3 - Advanced - Moist, Bite-Size Herrera: Not applicable Wound Care Instructions: Change dressing 12/14/16 to sterile occlusive dressing ( coverderm) Activity/Weight Bearing Restrictions: wbat - Follow Up Care Current Providers and Referrals: BLAZE WALLACE [Primary Care Provider] -
--- NOTE | 2016-12-12 13:57 | SOAPPROG ---
[facility] Progress Note Assessment/Plan: Assessment: Plan: 12/12/16 13:51 A/P 1. Dysphagia - s/p EGD with large food impaction seen. CT scan negative for extrinsic compression. I had a long discussion with the patient that this appears to be a chronic issue. However, he believes that this occurred due to his tramadol use. I discussed that this may be a cancer versus achalasia versus other? I did recommend a repeat EGD to ensure the correct diagnosis and if this is normal. Manometry as an outpatient. He would like to wait and see. The risks , benefits, and alternatives of the procedure were discussed in great detail. Subjective: cc: Follow up dysphagia. Feels well this am. Objective: Vital Signs Temp Pulse Resp BP Pulse Ox 36.5 C 83 16 168/103 H 94 12/12/16 11:00 12/12/16 11:00 12/12/16 11:00 12/12/16 11:03 12/12/16 11:00 Laboratory Results 12/09/16 04:33 12/11/16 08:32 12/11/16 12/12/16 12/13/16 05:59 05:59 05:59 Intake Total 600 1290 240 Output Total 260 800 300 Balance 340 490 -60 Physical Exam - Physical Exam General Appearance: alert, no apparent distress EENT: No scleral icterus (R), No scleral icterus (L) Neck: normal inspection Respiratory: lungs clear, normal breath sounds, No crackles, No rales, No rhonchi, No stridor Cardiac/Chest: regular rate, rhythm, No bradycardia, No tachycardia, No diastolic murmur, No systolic murmur Abdomen: non-tender, soft, No distended, No guarding, No rebound Skin: normal color Neuro/Psych: normal mood/affect, oriented x 3, No abnormal staff educator II-XII ICD10 Worksheet Patient Problems: Problems Problem Status Onset Back pain Acute
--- NOTE | 2016-12-12 14:30 | PDIAF ---
- Diagnosis Diagnosis: silas and dysphagia with esophageal obstruction Code Status: Full Code - Medication Management Discharge Medications: Medications to Continue on Transfer Metoprolol Succinate Xr [Toprol Xl 50 mg (*)] 50 mg PO DAILY 11/01/15 [Last Taken 12/07/16 08:00] C/E/Zn/Cu/OM3/DHA/EPA/LUT/ZEAX [Preservision Areds 2 Softgel] 1 each PO DAILY [Last Taken Unknown] LORazepam [Ativan (*)] 0.25 mg PO DAILY PRN 11/21/16 [Last Taken Unknown] Levothyroxine [Synthroid 100 mcg (*)] 100 mcg PO DAILY06 11/21/16 [Last Taken Unknown] Multivitamins [Multivitamin (*)] 1 each PO DAILY 11/21/16 [Last Taken Unknown] Naproxen Sodium [Aleve 220 MG (*)] 220 mg PO BID PRN 11/21/16 [Last Taken Unknown] traMADol [Ultram 50 mg (*)] 25 mg PO DAILY PRN 11/21/16 [Last Taken Unknown] Enoxaparin [Lovenox 40 MG (*)] 40 mg SC DAILY syr 12/12/16 [Last Taken Unknown] Lisinopril 5 mg PO DAILY #30 tablet 12/12/16 [Last Taken Unknown] Sennosides/Docusate Sodium [Senokot-S] 1 - 2 tab PO BID tab 12/12/16 [Last Taken Unknown] celeCOXIB [Celebrex (*)] 200 mg PO DAILY cap 12/12/16 [Last Taken Unknown] oxyCODONE IR [Oxycodone Ir (*)] 5 - 10 mg PO Q3HRS PRN tab 12/12/16 [Last Taken Unknown] traMADol [Ultram 50 mg (*)] 50 mg PO Q6HRS tab 12/12/16 [Last Taken Unknown] Discharge Medications: Refer to the Discharge Home Medication list for PRN reason. PICC Care - Routine: N/A - Orders Services needed: Physical Therapy, Occupational Therapy Diet Recommendation: no restrictions on diet, other (recommend full liquids and diet that is less likely to get stuck in esophogus) Diet Texture: Dysphagia 3 - Advanced - Moist, Bite-Size Herrera: Not applicable Wound Care Instructions: Change dressing 12/14/16 to sterile occlusive dressing ( coverderm) Activity/Weight Bearing Restrictions: wbat - Follow Up Care Current Providers and Referrals: BLAZE WALLACE [Primary Care Provider] -
--- NOTE | 2016-12-12 15:21 | ASMTCMCOM ---
CM Note CM Note Notes: Pt medically stable for d/c to [facility]. [facility] beds. RN to call report. Orders sent. [facility] transport set up for 1500. Transitional care to follow. Date Signed: 12/12/2016 03:20 PM Electronically Signed By:ELY Hernandez
--- NOTE | 2016-12-12 15:55 | ASDISCHSUM ---
Discharge Information Plan Status:SNF Medically Cleared to Leave: Discharge Date:12/12/2016 03:40 PM CM D/C Disposition:Halfway Facility ADT D/C Disposition:Halfway Facility Projected Discharge Date:12/12/2016 11:00 AM Transportation at D/C:Wheelchair Van Discharge Delay Reason: Follow-Up Date:12/12/2016 11:00 AM Discharge Slot: Final Diagnosis: Placement Information Referral Type:*Skilled Nursing/SNF Referral ID:[id number] Provider Name:Jade Zavaleta Address 1:[address] Phone Number: Address 2: Fax Number: City:[place] Selection Factors: State:[place] Patient Contact Information Contact Name:MATEUS Relationship:Son Address: Work Phone: City: [facility] Phone: [facility] Code: Email: Financial Information Financial Class: Primary Plan Desc:MEDICARE INPATIENT Primary Plan Number:[id number] Secondary Plan Desc:JENY PPO [employer] Secondary Plan Number:[id number] Assessment Information [facility] CM Progress Note CM Note CM Note Notes: OT rec home vs. HHC vs. SNF, PT eval pending. Pt was not able to participate in PT due to pain. PT Jessenia alerts this CM pt may need SNF. Pt lives alone in tri-level home. CM to follow for d/c needs. Date Signed: 12/08/2016 02:50 PM Electronically Signed By:ELY Hernandez [facility] CM Progress Note CM Note CM Note Notes: Pt agreeable to SNF per therapy rec, #1 choice if [facility] who will not have bed if pt d/c tomorrow but referral sent. [facility] sent referrals. Date Signed: 12/09/2016 04:09 PM Electronically Signed By:ELY Hernandez [facility] CM Progress Note CM Note CM Note Notes: Pt will have upper endoscopy today and is not ready for DC. Pt's [facility] of SNF[facility], currently has a bed for pt. They asked that C/M check with them prior to DC. C/M will cntinue to follow. Date Signed: 12/10/2016 12:51 PM Electronically Signed By:Latonya Quinteros LCSW [facility] CM Progress Note CM Note CM Note Notes: Pt medically stable for d/c to [facility]. [facility] has no beds. RN to call report. Orders sent. transport set up for 1500. Transitional care to follow. Date Signed: 12/12/2016 03:20 PM Electronically Signed By:ELY Hernandez Intervention Information Intervention Type:*IM-Signed Date of Service:12/12/2016 03:26 PM Patient Type:Inpatient Staff Member:Mallorie Allen Hours: Discipline: Severity: Comment:
--- NOTE | 2016-12-12 19:45 | GDS ---
[f rep st] DISCHARGE SUMMARY DISCHARGE DIAGNOSES: 1. Elective hip arthroplasty. 2. Resolved delirium due to Ativan. 3. Dysphagia, status post EGD with large food impaction thought to be due to cancer versus achalasia versus other. 4. Hypertension. 5. History of atrial fibrillation, now in sinus rhythm. 6. Left upper lobe nodule of the lung measuring 9 mm. CONSULTANTS: Dr. Zac Cfiuentes, GI [facility]. Dr. Shivani Tinoco, Orthopedic Surgery. HOSPITAL COURSE AND STAY BY PROBLEM: 1. Right total hip arthroplasty: The patient was taken to the operating room on 12/07/[address] Ovi Tinoco, where he had a right total hip arthroplasty. The patient has done well postoperatively. C urrently, his pain is controlled. 2. Hospital Medicine was asked to consult on 12/08/2016 for dysphagia. He was found to have esophag eal spasm. He was also obtunded at that time which was thought to be due to Ativan and affects of an esthesia. He was seen by Dr. Paulina Vega from [facility] on 12/09/2016 and underwent EGD on 12/10/2016, where he was found to have food in the middle third of the esophagus and in the lower third of the esophagus that was removed after aggressive lavage and aspiration. It was thought to b e due to achalasia versus extrinsic compression of the distal esophagus. Subsequently, a CT of the c hest and abdomen was done which did not reveal any obvious extrinsic compression. On day of discharg e, the patient was seen by GI, where the patient refused any further diagnostic procedures. He tells me that he does want to continue eating, but I did caution him that food may continue to get stuck w hich the patient seems to understand as a risk and would like to proceed with his normal diet without making changes. PHYSICAL EXAMINATION ON DAY OF DISCHARGE,: VITAL SIGNS: Blood pressure 168/103, pulse of 83, respir atory rate 16, O2 saturation 94% on room air. Temperature afebrile. GENERAL: No acute distress. H EART: S1, S2. LUNGS: Clear. ABDOMEN: Soft. EXTREMITIES: No edema. PROCEDURES DONE THIS HOSPITAL STAY: Right total hip arthroplasty done by Dr. Tinoco on 12/07/2016. EG D with removal of food in the distal esophagus by Dr. Low on 12/10/2016. DISCHARGE MEDICATIONS: Please refer to discharge medication reconciliation in [facility] for details. DISCHARGE INSTRUCTIONS: The patient will be discharged from the hospital to [facility] for further re hab. I did recommend that he stay on a full liquid diet and stay away from foods that are likely to get stuck in the esophagus. He should have a repeat chest CT in 3 to 6 months to further evaluate th e new left upper lobe nodule seen on his CT scan. He should also follow up with GI of the [facility] further workup of his dysphagia. Greater than 30 minutes was spent on the discharge of this patient. /[id number]/MODL
--- NOTE | 2016-12-14 09:36 | ASMTCMCOM ---
CM Note CM Note Notes: Jayda muro [facility] reports pt left AMA from [facility] yesterday am because he did not like the doors and rails, said they looked cheap. VM left for transitional care w update. Date Signed: 12/14/2016 09:35 AM Electronically Signed By:ELY Hernandez
== END 2016-12-12 15:40 | DRG 470 ==
LOC: F3E 10:28 → F3N 12:17
PROVIDERS: ADMIT Orthopaedic Surgery; ATTEND Orthopaedic Surgery
PROC: 0SR904Z Replacement of Right Hip Joint with Ceramic on Polyethylene Synthetic Substitute, Open Approach (ICD-10-PCS; principal; 2016-12-07 12:00)
PROC: 0DC28ZZ Extirpation of Matter from Middle Esophagus, Via Natural or Artificial Opening Endoscopic (ICD-10-PCS; 2016-12-10)
PROC: 0DC38ZZ Extirpation of Matter from Lower Esophagus, Via Natural or Artificial Opening Endoscopic (ICD-10-PCS; 2016-12-10)
DX: M16.11 Unilateral primary osteoarthritis, right hip (principal); T18.128A Food in esophagus causing other injury, initial encounter; K22.0 Achalasia of cardia; K44.0 Diaphragmatic hernia with obstruction, without gangrene; I48.91 Unspecified atrial fibrillation; I10 Essential (primary) hypertension; E03.9 Hypothyroidism, unspecified; Z98.1 Arthrodesis status; Z85.51 Personal history of malignant neoplasm of bladder
CPT/HCPCS: 97110-GP; 97116-GP; 97161-GP; 97165-GO; 97530-GP; 97535-GO; C1713; G8978-GP-CK; G8979-GP-CI; G8987-GO-CJ; G8988-GO-CI; J0171; J0330; J0360; J0690; J1610; J1650; J1885; J2060; J2250; J2370; J2405; J2704; J2795; J3010; J3490; Q9967

== ENCOUNTER 2016-12-17 06:19 | Day surgery (SDC) | payer OTHER ==
[2016-12-17] MEDS ORDERED: NS 1,000 ML IV ONE (06:25)
[2016-12-17 06:34] LABS: % IMMATURE GRANULYOCYTES 0.6 % (0.0-1.1); ABSOLUTE IMMATURE GRANULOCYTES 0.07 10^3/uL (0.00-0.10); ADD DIFF? NO; ADD MORPH? NO; ADD SCAN? NO; ATYPICAL LYMPHOCYTE FLAG 20 (0-99); FRAGMENT RBC FLAG 0 (0-99); HEMATOCRIT 37.3 % (40.0-51.0); HEMOGLOBIN 13.1 g/dL (13.7-17.5); LEFT SHIFT FLG 10 (0-99); LIPEMIA HEMOLYSIS FLAG 90 (0-99); MEAN CELL HEMOGLOBIN 30.1 pg (27.9-34.1); MEAN CELL HEMOGLOBIN CONCENTR. 35.1 g/dL (32.4-36.7); MEAN CELL VOLUME 85.7 fL (81.5-99.8); MEAN PLATELET VOLUME 9.6 fL (8.7-11.7); PLATELET CLUMPS FLAG 0 (0-99); PLATELET COUNT 330 10^3/uL (150-400); RED BLOOD CELL COUNT 4.35 10^6/uL (4.40-6.38); RED CELL DISTRIBUTION WIDTH 13.1 % (11.5-15.2)
[2016-12-17 06:43] LABS: INR 1.07 (0.83-1.16); PROTIME(PATIENT) 13.8 SEC (12.0-15.0)
[2016-12-17 06:44] LABS: APTT 30.3 SEC (23.0-38.0)
[2016-12-17 06:47] LABS: ANION GAP 15 mEq/L (8-16); CALCIUM 9.3 mg/dL (8.5-10.4); CARBON DIOXIDE 23 mEq/l (22-31); CHLORIDE 94 mEq/L (97-110); CREATININE 0.7 mg/dL (0.7-1.3); GLOMERULAR FILTRATION RATE > 60; GLUCOSE 106 mg/dL (70-100); POTASSIUM 3.8 mEq/L (3.5-5.2); SODIUM 132 mEq/L (134-144)
--- NOTE | 2016-12-17 06:56 | CPEKG ---
Heart Rate: 75 RR Interval: 800 P-R Interval: 180 QRSD Interval: 108 QT Interval: 436 QTC Interval: 487 P Deport: 79 QRS Deport: 33 T Wave Deport: -28 EKG Severity - ABNORMAL ECG - EKG Impression: INCOMPLETE ANALYSIS DUE TO MISSING DATA IN PRECORDIAL LEAD(S) EKG Impression: SINUS RHYTHM EKG Impression: PROBABLE LEFT ATRIAL ABNORMALITY EKG Impression: INCOMPLETE RIGHT BUNDLE BRANCH BLOCK EKG Impression: BORDERLINE PROLONGED QT INTERVAL Electronically Signed By: Henny Nunez 17-Dec-2016 15:42:52
[2016-12-17 06:59] LABS: CREATINE KINASE-MB FRACTION 2.04 ng/mL (0.00-3.19); TROPONIN I < 0.012 ng/mL (0.000-0.034)
--- NOTE | 2016-12-17 07:16 | EDPHY ---
HPI/HX/ROS/PE/MDM Narrative: CHIEF COMPLAINT: Difficulty breathing HISTORY OF PRESENT ILLNESS: This is an 86-year-old gentleman arriving via EMS who is 10 days status post a right hip replacement presents with esophageal discomfort and difficulty breathing which developed last night. Patient reports that while he was postop day 1, he developed severe esophageal discomfort while trying to eat. He was unable to tolerate p.o. intake. 2 days later he had a endoscope by Dr. Jayro Low on which demonstrated " esophageal plugging "with food. Per the patient this plug was removed. Patient was discharged 5 days ago. He reports he has been able tolerate liquids relatively well but has been only having 2-3 tbsp of solids at a time. Tonight he woke at midnight with severe epigastric discomfort, feeling like it was his esophagus. Discomfort continued throughout the night. He also reports developing significant shortness of breath. He denies anterior chest pain. Patient denies fevers, cough, lightheadedness, palpitations. He did report mild nausea but no vomiting. No urinary complaints. Currently on Lovenox. Has been having physical therapy at home. He reports doing quite well postoperatively No fever, chills, chest pain, shortness of breath, palpitations, vomiting, diarrhea, urinary complaints, headache, lightheadedness. REVIEW OF SYSTEMS: Aside from elements discussed in the HPI, a comprehensive 10-point review of systems was reviewed and is negative. PAST MEDICAL HISTORY: Atrial fibrillation, Hypertension, Hypothyroid, History of bladder cancer, Disk herniation, Spinal fusion (2014), Prostatectomy SOCIAL HISTORY: Lives independently. His son is helping care for him postoperatively. VITAL SIGNS: Reviewed by me. Room air sat 97%. Respiratory rate 22. GENERAL: Pleasant, elderly gentleman. No respiratory distress. HEENT: Atraumatic. Eyes: No icterus, no injection. Mouth: Very dry mucous membranes. No erythema or lesions. Neck: supple with no adenopathy. LUNGS: Bronchial breath sounds throughout. Clear. No wheezes, rhonchi or rales. CARDIAC: Regular rate and rhythm, no rubs, murmurs or gallops. ABDOMEN: Soft, nontender, nondistended, bowel sounds normal. BACK: No CVA tenderness. EXTREMITIES: No trauma. Trace edema right lower extremity. NEURO: Alert and oriented, grossly nonfocal. SKIN: Warm and dry, no rash. PSYCHIATRIC: Normal mentation, no agitation. Portions of this note were transcribed by a medical interpreter. I personally performed a history, physical exam, medical decision making, and confirmed accuracy of information the transcribed note. ED Course: 12-LEAD EKG: Please see the full report in [facility]. My interpretation: Sinus rhythm, incomplete right bundle branch block, no acute ischemic changes 86 y/o male presents with esophageal discomfort and difficulty breathing since yesterday evening. Exam reveals dry mucous membranes. Lungs are clear to auscultation. IV established. Administered 1L IV NS. Administered 4mg IV Zofran for nausea relief. Plan for labs including CBC, BMP, PTPTT, liver, lipase, BNP, and Troponin. Plan for chest x-ray. Chest x-ray negative for acute processes. Plan for CTA chest to rule out pulmonary embolism. 08:[address] Tran, radiologist. CTA negative for PE. Evidence of fibrotic streaks at lung bases bilaterally. Lung workup is negative at this point. Plan to consult with gastroenterology. 09:[address] Alexis, finisher [employer]. He recommends liquid diet only with follow-up on Monday. 09:16 Reassessed patient. Discussed outpatient followup and liquid diet precautions. The patient does not feel he will be able to manage this at home over the weekend. Also discussed the situation with the patient's son. Both patient and the son are somewhat uncomfortable with a plan for outpatient management. Case discussed again with Dr. Alexis. Dr. Alexis will arrange to do a endoscopy today. Patient transferred to endoscopy suite. Patient's course was discussed with Dr. Alexis following the endoscopy. There was no esophageal impaction noted. Patient did have a duodenal ulcer. Patient was discharged home from the endoscopy suite after recovery in PACU. MDM: Differential diagnosis for the patient's shortness of breath was considered including but not limited to pulmonary infectious processes, COPD exacerbation, pulmonary emboli, pulmonary edema, congestive heart failure, and cardiac causes. - Data Points Imaging Results: Imaging Impressions Chest X-Ray 12/17/16 06:26 Impression: 1. Stable bibasilar scarring. Chest/Thorax CTA 12/17/16 07:28 Impression: 1. No evidence of pulmonary embolus using CT protocol. 2. Arteriosclerotic calcification associated with the coronary arteries noted. Findings discussed with Henny Nunez MD at 8:53 hour, 12/17/2016. Laboratory Results: Laboratory Results 12/17/16 06:00 12/17/16 06:00 12/17/16 12/17/16 12/17/16 06:00 06:00 06:00 WBC RBC Hgb Hct MCV MCH MCHC RDW Plt Count MPV Neut % (Auto) Lymph % (Auto) [place] % (Auto) Eos % (Auto) Baso % (Auto) Nucleat RBC Rel Count Absolute Neuts (auto) Absolute Lymphs (auto) Absolute Monos (auto) Absolute Eos (auto) Absolute Basos (auto) Absolute Nucleated RBC Immature Gran % Immature Gran # PT 13.8 SEC SEC (12.0-15.0) INR 1.07 (0.83-1.16) APTT 30.3 SEC SEC (23.0-38.0) Sodium 132 mEq/L L mEq/L (134-144) Potassium 3.8 mEq/L mEq/L (3.5-5.2) Chloride 94 mEq/L L mEq/L (97-110) Carbon Dioxide 23 mEq/l mEq/l (22-31) Anion Gap 15 mEq/L mEq/L (8-16) BUN 11 mg/dL mg/dL (7-23) Creatinine 0.7 mg/dL mg/dL (0.7-1.3) Estimated GFR > 60 Glucose 106 mg/dL H mg/dL (70-100) Calcium 9.3 mg/dL mg/dL (8.5-10.4) Total Bilirubin 1.2 mg/dL mg/dL (0.1-1.4) Conjugated Bilirubin 0.4 mg/dL mg/dL (0.0-0.5) Unconjugated Bilirubin 0.8 mg/dL mg/dL (0.0-1.1) AST 33 IU/L IU/L (17-59) ALT 46 IU/L IU/L (21-72) Alkaline Phosphatase 80 IU/L IU/L (38-126) Creatine Kinase 167 IU/L IU/L (0-224) CK-MB (CK-2) Fraction 2.04 ng/mL ng/mL (0.00-3.19) Troponin I < 0.012 ng/mL ng/mL (0.000-0.034) NT-Pro-B Natriuret Pep 826 pg/mL H pg/mL (0-450) Total Protein 6.8 g/dL g/dL (6.3-8.2) Albumin 4.0 g/dL g/dL (3.5-5.0) Lipase 94 IU/L IU/L (23-300) 12/17/16 06:00 WBC 11.13 10^3/uL H 10^3/uL (3.80-9.50) RBC 4.35 10^6/uL L 10^6/uL (4.40-6.38) Hgb 13.1 g/dL L g/dL (13.7-17.5) Hct 37.3 % L % (40.0-51.0) MCV 85.7 fL fL (81.5-99.8) MCH 30.1 pg pg (27.9-34.1) MCHC 35.1 g/dL g/dL (32.4-36.7) RDW 13.1 % % (11.5-15.2) Plt Count 330 10^3/uL 10^3/uL (150-400) MPV 9.6 fL fL (8.7-11.7) Neut % (Auto) 71.1 % % (39.3-74.2) Lymph % (Auto) 20.0 % % (15.0-45.0) [place] % (Auto) 7.5 % % (4.5-13.0) Eos % (Auto) 0.3 % L % (0.6-7.6) Baso % (Auto) 0.5 % % (0.3-1.7) Nucleat RBC Rel Count 0.0 % % (0.0-0.2) Absolute Neuts (auto) 7.91 10^3/uL H 10^3/uL (1.70-6.50) Absolute Lymphs (auto) 2.23 10^3/uL 10^3/uL (1.00-3.00) Absolute Monos (auto) 0.83 10^3/uL H 10^3/uL (0.30-0.80) Absolute Eos (auto) 0.03 10^3/uL 10^3/uL (0.03-0.40) Absolute Basos (auto) 0.06 10^3/uL 10^3/uL (0.02-0.10) Absolute Nucleated RBC 0.00 10^3/uL 10^3/uL (0-0.01) Immature Gran % 0.6 % % (0.0-1.1) Immature Gran # 0.07 10^3/uL 10^3/uL (0.00-0.10) PT INR APTT Sodium Potassium Chloride Carbon Dioxide Anion Gap BUN Creatinine Estimated GFR Glucose Calcium Total Bilirubin Conjugated Bilirubin Unconjugated Bilirubin AST ALT Alkaline Phosphatase Creatine Kinase CK-MB (CK-2) Fraction Troponin I NT-Pro-B Natriuret Pep Total Protein Albumin Lipase Medications Given: Discontinued Medications Sodium Chloride (Ns) 1,000 mls @ 0 mls/hr IV EDNOW ONE; Wide Open PRN Reason: Protocol Stop: 12/17/16 06:26 Last Admin: 12/17/16 06:57 Dose: 1,000 mls Ondansetron HCl (Zofran) 4 mg IVP EDNOW ONE Stop: 12/17/16 08:25 Last Admin: 12/17/16 08:26 Dose: 4 mg General Time Seen by Provider: 12/17/16 06:58 Initial Vital Signs: Initial Vital Signs Heart Rate 97 12/17/16 06:19 Respiratory Rate 22 H 12/17/16 06:19 Blood Pressure 187/76 H 12/17/16 06:19 O2 Sat (%) 99 12/17/16 06:19 O2 Delivery Mode Room Air O2 (L/minute) 0 Allergies/Adverse Reactions: No Known Allergies Allergy (Verified 12/07/16 11:05) Home Medications: Medication Instructions Recorded Metoprolol Succinate Xr [Toprol Xl 50 mg PO DAILY 11/01/15 50 mg (*)] C/E/Zn/Cu/OM3/DHA/EPA/LUT/ZEAX 1 each PO DAILY 11/21/16 [Preservision Areds 2 Softgel] LORazepam [Ativan (*)] 0.25 mg PO DAILY PRN 11/21/16 Levothyroxine [Synthroid 100 mcg 100 mcg PO DAILY06 11/21/16 (*)] Multivitamins [Multivitamin (*)] 1 each PO DAILY 11/21/16 Naproxen Sodium [Aleve 220 MG (*)] 220 mg PO BID PRN 11/21/16 traMADol [Ultram 50 mg (*)] 25 mg PO DAILY PRN 11/21/16 Enoxaparin [Lovenox 40 MG (*)] 40 mg SC DAILY syr 12/12/16 Lisinopril 5 mg PO DAILY #30 tablet 12/12/16 Sennosides/Docusate Sodium 1 - 2 tab PO BID tab 12/12/16 [Senokot-S] celeCOXIB [Celebrex (*)] 200 mg PO DAILY cap 12/12/16 oxyCODONE IR [Oxycodone Ir (*)] 5 - 10 mg PO Q3HRS PRN tab 12/12/16 traMADol [Ultram 50 mg (*)] 50 mg PO Q6HRS tab 12/12/16 Departure - Departure Disposition: Home, Routine, Self-Care Clinical Impression: Dysphagia Qualifiers: Dysphagia type: unspecified Qualified Code(s): R13.10 - Dysphagia, unspecified Condition: Good Report Scribed for: Henny Nunez Report Scribed by: Mary Ramirez Date of Report: 12/17/16 Time of Report: 07:14
[2016-12-17] MEDS ORDERED: IOPAMIDOL (ISOVUE 370) 100 ML BTL IV ONE (07:43)
[2016-12-17 07:52] LABS: BILIRUBIN,TOTAL 1.2 mg/dL (0.1-1.4); BILIRUBIN-CONJUGATED 0.4 mg/dL (0.0-0.5); BILIRUBIN-UNCONJUGATED 0.8 mg/dL (0.0-1.1); TOTAL PROTEIN 6.8 g/dL (6.3-8.2)
[2016-12-17] MEDS ORDERED: ONDANSETRON 4 MG/2 ML VIAL ONE (08:24)
[2016-12-17] MEDS ORDERED: ONDANSETRON 4 MG/2 ML VIAL IVP ONE (08:24)
--- NOTE | 2016-12-17 11:18 | PDANEPAE ---
ANE History of Present Illness egd ANE Past Medical History - Cardiovascular History Hx Hypertension: Yes Hx Arrhythmias: Yes Hx CHF / Valvular Disease: Yes - Pulmonary History Hx COPD: No Hx Asthma/Reactive Airway Disease: No Hx Recent Upper Respiratory Infection: No Hx Oxygen in Use at Home: No Hx Sleep Apnea: No - Neurologic History Hx Cerebrovascular Accident: No Hx Seizures: No Hx Dementia: No - Endocrine History Hx Diabetes: No - Renal History Hx Renal Disorders: No - Liver History Hx Hepatic Disorders: No - Neurological & Psychiatric Hx Hx Neurological and Psychiatric Disorders: No - Cancer History Hx Cancer: Yes Cancer History Comment: PROSTATE - Congenital Disorder History Hx Congenital Disorders: No - GI History Hx Gastrointestinal Disorders: No - Other Health History Other Health History: NONE, BRUISES EASILY - Chronic Pain History Chronic Pain: Yes (S I JOINT) - Surgical History Prior Surgeries: SPINAL FUSION SX ANE Review of Systems Review of systems is: negative Review of Systems: - Exercise capacity Exercise capacity: >=4 METS ANE Patient History - Allergies Allergies/Adverse Reactions: No Known Allergies Allergy (Verified 12/07/16 11:05) - Home Medications Home medications: home medication list seen and reviewed Home Medications: Metoprolol Succinate Xr [Toprol Xl 50 mg (*)] 50 mg PO DAILY 11/01/15 [Last Taken 12/07/16 08:00] C/E/Zn/Cu/OM3/DHA/EPA/LUT/ZEAX [Preservision Areds 2 Softgel] 1 each PO DAILY [Last Taken Unknown] LORazepam [Ativan (*)] 0.25 mg PO DAILY PRN 11/21/16 [Last Taken Unknown] Levothyroxine [Synthroid 100 mcg (*)] 100 mcg PO DAILY06 11/21/16 [Last Taken Unknown] Multivitamins [Multivitamin (*)] 1 each PO DAILY 11/21/16 [Last Taken Unknown] Naproxen Sodium [Aleve 220 MG (*)] 220 mg PO BID PRN 11/21/16 [Last Taken Unknown] traMADol [Ultram 50 mg (*)] 25 mg PO DAILY PRN 11/21/16 [Last Taken Unknown] - NPO status NPO Status: no food or drink >8 hours NPO Since - Liquids (Date): 12/17/16 NPO Since - Liquids (Time): 06:00 NPO Since - Solids (Date): 10/06/17 NPO Since - Solids (Time): 20:00 - Anes Hx Anes Hx: no prior problems - Smoking Hx Smoking Status: Never smoked - Family Anes Hx Family Anes Hx: none Family Hx Anesthesia Complications: NONE ANE Labs/Vital Signs - Labs Result Diagrams: 12/17/16 06:00 12/17/16 06:00 - Vital Signs Blood Pressure: 181/102 Heart Rate: 76 Respiratory Rate: 16 O2 Sat (%): 96 Height: 187.96 cm Weight: 72.575 kg ANE Physical Exam - Airway Neck exam: FROM Mallampati Score: Class 1 Mouth exam: normal dental/mouth exam - Pulmonary Pulmonary: no respiratory distress - Cardiovascular Cardiovascular: regular rate and rhythym - ASA Status ASA Status: II, III ANE Anesthesia Plan Total IV Anesthesia: Yes
[2016-12-17] MEDS ORDERED: PROPOFOL/EMULSION 500 MG/50 ML BOTTLE IV ONE (11:31)
[2016-12-17] MEDS ORDERED: LIDOCAINE 2% 100 MG/5 ML SYR ONE (11:31)
--- NOTE | 2016-12-17 11:45 | GIREPORT ---
[facility] - Endoscopy Department Patient Name: Phillip Cannon Procedure Date: 12/17/2016 11:26 AM Patient Type: Outpatient Attending / ER Physician: Bud Alexis MD Procedure: Upper GI endoscopy Indications: Dysphagia Providers: Bud Alexis MD Medicines: Monitored Anesthesia Care Complications: No immediate complications. Description of Procedure: After obtaining informed consent, the endoscope was passed under direct vision. Throughout the procedure, the patient's blood pressure, pulse, and oxygen saturations were monitored continuous ly. The Endoscope was introduced through the mouth, and advanced to the second part of duodenum. The upper GI endoscopy was accomplished without difficulty. The patient tolerated the procedure well . Findings: The examined esophagus was significantly tortuous. The lumen of the proximal esophagus was moderately dilated. Abnormal motility was noted in the esophagus. The cricopharyngeus was normal. There is a decreas e in motility of the esophageal body. The distal esophagus/lower esophageal sphincter is open. Normal peristalsis not noted. The stomach was normal. Three non-bleeding cratered duodenal ulcers with pigmented material were found in the first port ion of the duodenum. The largest lesion was 10 mm in largest dimension. The second portion of the duodenum was normal. Estimated Blood Loss: Estimated blood loss: none. Post Op Diagnosis: - Tortuous esophagus. - Dilation in the proximal esophagus. - Abnormal esophageal motility, suspicious for achalasia. - Normal stomach. - Multiple non-bleeding duodenal ulcers with pigmented material. - Normal second portion of the duodenum. - No specimens collected. Recommendation: - Use Protonix (pantoprazole) 40 mg PO daily indefinitely. - No aspirin, ibuprofen, naproxen, or other non-steroidal anti-inflamma tory drugs. - Stop celebrex - Check serum H.pylori and treat if positive. - Outpatient esophagram and manometry will be arranged - GI f/u in 2-4 weeks after imaging. - Discharge to home. Attending Participation: I personally performed the entire procedure without the assistance of a fellow, resident or surg ical application assistant. Bud Alexis MD Bud Alexis MD 12/17/2016 11:45:15 AM Number of Addenda: 0 Note Initiated On: 12/17/2016 11:26 AM [email or web address]
[2016-12-17] MEDS ORDERED: LABETALOL HCL 50 MG/10 ML SYR IVP PRN (11:56)
[2016-12-17] MEDS ORDERED: fentaNYL 100 MCG/2 ML INJ IVP PRN (11:56)
[2016-12-17] MEDS ORDERED: ACETAMINOPHEN 500 MG TAB PO PRN (11:56)
[2016-12-17] MEDS ORDERED: NALOXONE HCL 0.4 MG/ML INJ IVP PRN (11:56)
[2016-12-17] MEDS ORDERED: ONDANSETRON 4 MG/2 ML VIAL IVP PRN (11:56)
--- NOTE | 2016-12-17 11:57 | POSTANESTH ---
Post Anesthetic Evaluation Cardiovascular Status: Similar to Pre-Op Cond Respiratory Status: Normal, Stable, Similar to Pre-op Cond. Level of Consciousness/Mental Status: Can Participate in Eval, Mildly Sleepy, Arousable Pain Control: Adequate, Prn Tx Ordered Nausea/Vomiting Control: Adequate, Prn Tx Ordered Complications Possibly Related to Anesthesia: None Noted
[2016-12-17] MEDS ORDERED: LABETALOL HCL 5 MG/ML 20 ML MDV ONE (12:31)
[2016-12-17 13:09] VITALS: TEMP 98.2
[2016-12-17 13:11] VITALS: PULSE 83
[2016-12-17 13:48] VITALS: BP 191/104; RESP 15; O2SAT 97
== END 2016-12-17 14:35 | disposition home or self-care (01) ==
LOC: EDUNIT# → FSGY 10:41
PROVIDERS: ATTEND Internal Medicine Gastroenterology
PROC: 0DJ08ZZ Inspection of Upper Intestinal Tract, Via Natural or Artificial Opening Endoscopic (ICD-10-PCS; principal; 2016-12-17 11:00)
DX: K22.8 Other specified diseases of esophagus (principal); R13.10 Dysphagia, unspecified; K26.9 Duodenal ulcer, unspecified as acute or chronic, without hemorrhage or perforation; I10 Essential (primary) hypertension; E03.9 Hypothyroidism, unspecified; Z85.51 Personal history of malignant neoplasm of bladder
CPT/HCPCS: 96374; J2001; J2405; J2704; J3490; Q9967

== ENCOUNTER → 2017-08-11 | Outpatient (CLI) | payer OTHER | LOC: FIMAGING 14:28 | PROVIDERS: ATTEND Physician Assistant | DX: M23.352 Other meniscus derangements, posterior horn of lateral meniscus, left knee (principal); M23.322 Other meniscus derangements, posterior horn of medial meniscus, left knee; M22.42 Chondromalacia patellae, left knee; M25.462 Effusion, left knee; M71.22 Synovial cyst of popliteal space [Baker], left knee ==

== ENCOUNTER → 2018-04-25 | Outpatient (CLI) | payer OTHER | LOC: FIMAGING 15:52 | DX: R90.82 White matter disease, unspecified (principal); H53.2 Diplopia ==

== ENCOUNTER 2018-04-27 10:59 | Emergency (ER) | payer OTHER ==
--- NOTE | 2018-04-27 11:29 | EDPHY ---
H & P Stated Complaint: LLQ pain Time Seen by Provider: 04/27/18 11:31 - Personal History Current Tetanus/Diphtheria Vaccine: Yes Tetanus Vaccine Date: 2010 - Medical/Surgical History Hx Asthma: No Hx Chronic Respiratory Disease: No Hx Diabetes: No Hx Cardiac Disease: No Hx Renal Disease: No Hx Cirrhosis: No Hx Alcoholism: No Hx HIV/AIDS: No Hx Splenectomy or Spleen Trauma: No Other PMH: hypothyroid, back surgery (L4,5, S1 fusion), atrial flutter 5 years ago, prostate ca/prostatectomy, R YANI,esophageal plugging?, hiatal hernia, right hip 12/28 - Social History Smoking Status: Never smoked Constitutional: Initial Vital Signs Temperature (C) 36.3 C 04/27/18 11:11 Heart Rate 76 04/27/18 11:11 Respiratory Rate 18 04/27/18 11:11 Blood Pressure 198/108 H 04/27/18 11:11 O2 Sat (%) 96 04/27/18 11:11 O2 Delivery Mode Room Air Allergies/Adverse Reactions: No Known Allergies Allergy (Verified 04/27/18 11:13) Home Medications: Medication Instructions Recorded Metoprolol Succinate Xr [Toprol Xl 50 mg PO DAILY 11/01/15 50 mg (*)] C/E/Zn/Cu/OM3/DHA/EPA/LUT/ZEAX 1 each PO DAILY 11/21/16 [Preservision Areds 2 Softgel] LORazepam [Ativan (*)] 0.25 mg PO DAILY PRN 11/21/16 Levothyroxine [Synthroid 100 mcg 100 mcg PO DAILY06 11/21/16 (*)] Multivitamins [Multivitamin (*)] 1 each PO DAILY 11/21/16 Naproxen Sodium [Aleve 220 MG (*)] 220 mg PO BID PRN 11/21/16 traMADol [Ultram 50 mg (*)] 25 mg PO DAILY PRN 11/21/16 Enoxaparin [Lovenox 40 MG (*)] 40 mg SC DAILY syr 12/12/16 Lisinopril 5 mg PO DAILY #30 tablet 12/12/16 Sennosides/Docusate Sodium 1 - 2 tab PO BID tab 12/12/16 [Senokot-S] celeCOXIB [Celebrex (*)] 200 mg PO DAILY cap 12/12/16 oxyCODONE IR [Oxycodone Ir (*)] 5 - 10 mg PO Q3HRS PRN tab 12/12/16 traMADol [Ultram 50 mg (*)] 50 mg PO Q6HRS tab 12/12/16 Medical Decision Making - Diagnostics Imaging Results: Imaging Impressions Abdomen CT 04/27/18 11:43 Impression: 1. No acute abdominopelvic process. 2. Thickening of the gastroesophageal junction, likely related to an underlying hiatal hernia and reactive to reflux. Recommend correlation with symptoms. 3. Heterogeneity of the splenic parenchyma, similar to the prior examination when accounting for differences in technique. This is of uncertain clinical significance. 4. Colonic diverticulosis. Findings and recommendations discussed with Ben Montes MD at 1330 hour, . Imaging: Discussed imaging studies w/ gut dropper Radiologist, I viewed and interpreted images myself ED Course/Re-evaluation: CHIEF COMPLAINT: Abdominal pain HISTORY OF PRESENT ILLNESS: The patient is an 87 y/o male with a history of prostatectomy arriving with his friend complaining of abdominal pain since January, 4 months ago. He first noticed a "sore place" in his let lower abdomen in January and was evaluated by his PCP, Dr. Israel, for this later that month. He did not have a hernia during that exam and his PCP thought it may be a muscle strain. Symptoms have not improved since then, but had not progressed either. Then 3-4 days ago the pain became more severe particularly during and after urination. He says at baseline, "urination for me involves using my abdominal muscles a lot" to completely empty his bladder, though it's not clear bearing down and eve his abdominal muscles causes pain in general. 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 This pain is associated with low back pain at the same level. Yesterday morning, the pain briefly spread down the top of his thighs as well. His symptoms tend to improve as he becomes more active throughout the day and are most severe when he wakes up to urinate in the middle of the night. He denies fever, chills, vomiting, diarrhea, recent trauma , or recent illness. REVIEW OF SYSTEMS: A comprehensive 10 system review of systems is otherwise negative aside from elements mentioned in the history of present illness and medical decision making. PHYSICAL EXAM: HR, BP, O2 Sat, RR. Temp noted General Appearance: Alert, well hydrated, appropriate, and non-toxic appearing. Head: Atraumatic without scalp tenderness or obvious injury Eyes: Pupils equal, round, reactive to light and accommodation, EOMI, no trauma , no injection. Nose: Atraumatic, no rhinorrhea, clear. Throat: There is no erythema or exudates, no lesions, normal tonsils, mucus membranes moist. Neck: Supple, nontender, no lymphadenopathy. Respiratory: No retractions, no distress, no wheezes, and no accessory muscle use. Lungs are clear to auscultation bilaterally. Cardiovascular: Regular rate and rhythm, no murmurs, rubs, or gallops. Good capillary refill all extremities. Gastrointestinal: Abdomen is soft, LLQ tenderness, non-distended, no masses, no rebound, no guarding, no peritoneal signs. Musculoskeletal: Normal active ROM of all extremities, atraumatic. Neurological: Alert, appropriate, and interactive. Nonfocal. Skin: No rashes, good turgor, no nodules on palpation. Past medical history: hypothyroid, atrial flutter, prostate cancer, hiatal hernia Past surgical history: Prostatectomy, L4-L5-S1 fusion, right hip repair 12/28 Family history: Noncontributory Social history: Friend at bedside. Lives in [place]. Retired. DIAGNOSTICS/PROCEDURES/CRITICAL CARE TIME: Abdominal CT: nothing acute per Dr. Jaramillo. DIFFERENTIAL DIAGNOSIS: The differential diagnosis for the patient's abdominal pain included but was not limited to appendicitis, cholecystitis, hernias, testicular torsion, gastritis, and urinary tract infection. MEDICAL DECISION MAKING: This is an 87 y/o male with a history of prostate cancer post prostatectomy who presents with a 4-month history of ongoing lower abdominal pain that became more severe and associated with urination over the last 3-4 days. He has LLQ tenderness on exam, but is otherwise well-appearing with an unremarkable exam. This could be diverticulitis. Plan for IV, labs, UA, abdominal CT, and symptomatic management. 1L IV NS ordered. He has declined pain medication. Labs unremarkable. Reassessed patient and discussed findings. I've not found an obvious or emergent cause for his symptoms today. Recommended follow up with his PCP in the next few days and suggested trying some constipation treatments as well. Return precautions discussed. He is comfortable with this plan. - Data Points Laboratory Results: Laboratory Results 04/27/18 11:45 04/27/18 11:45 04/27/18 04/27/18 04/27/18 13:00 11:52 11:45 WBC RBC Hgb POC Hgb 15.6 gm/dL gm/dL (13.7-17.5) Hct POC Hct 46 % % (40-51) MCV MCH MCHC RDW Plt Count MPV Neut % (Auto) Lymph % (Auto) [place] % (Auto) Eos % (Auto) Baso % (Auto) Nucleat RBC Rel Count Absolute Neuts (auto) Absolute Lymphs (auto) Absolute Monos (auto) Absolute Eos (auto) Absolute Basos (auto) Absolute Nucleated RBC Immature Gran % Immature Gran # POC Sodium 136 mEq/L mEq/L (135-145) Sodium 134 mEq/L L mEq/L (135-145) POC Potassium 3.9 mEq/L mEq/L (3.3-5.0) Potassium 4.2 mEq/L mEq/L (3.5-5.2) POC Chloride 101 mEq/L mEq/L (97-110) Chloride 103 mEq/L mEq/L (97-110) Carbon Dioxide 24 mEq/l mEq/l (22-31) POC Total CO2 24 mEq/L mEq/L (22-31) Anion Gap 7 mEq/L mEq/L (6-14) POC BUN 25 mg/dL H mg/dL (7-23) BUN 26 mg/dL H mg/dL (7-23) Creatinine 0.8 mg/dL mg/dL (0.7-1.3) POC Creatinine 0.9 mg/dL mg/dL (0.7-1.3) Estimated GFR > 60 Glucose 85 mg/dL mg/dL (70-100) POC Glucose 84 mg/dL mg/dL (70-100) Calcium 9.4 mg/dL mg/dL (8.5-10.4) Urine Color YELLOW Urine Appearance CLEAR Urine pH 6.0 (5.0-7.5) Ur Specific [place] 1.014 (1.002-1.030) Urine Protein NEGATIVE (NEGATIVE) Urine Ketones NEGATIVE (NEGATIVE) Urine Blood NEGATIVE (NEGATIVE) Urine Nitrate NEGATIVE (NEGATIVE) Urine Bilirubin NEGATIVE (NEGATIVE) Urine Urobilinogen NEGATIVE EU EU (0.2-1.0) Ur Leukocyte Esterase NEGATIVE (NEGATIVE) Urine RBC 1-3 /hpf /hpf (0-3) Urine WBC 1-3 /hpf /hpf (0-3) Ur Epithelial Cells NONE SEEN /lpf /lpf (NONE-1+) Urine Glucose NEGATIVE (NEGATIVE) 04/27/18 11:45 WBC 6.02 10^3/uL 10^3/uL (3.80-9.50) RBC 4.92 10^6/uL 10^6/uL (4.40-6.38) Hgb 15.0 g/dL g/dL (13.7-17.5) POC Hgb Hct 44.0 % % (40.0-51.0) POC Hct MCV 89.4 fL fL (81.5-99.8) MCH 30.5 pg pg (27.9-34.1) MCHC 34.1 g/dL g/dL (32.4-36.7) RDW 13.5 % % (11.5-15.2) Plt Count 189 10^3/uL 10^3/uL (150-400) MPV 9.9 fL fL (8.7-11.7) Neut % (Auto) 58.2 % % (39.3-74.2) Lymph % (Auto) 30.2 % % (15.0-45.0) [place] % (Auto) 9.5 % % (4.5-13.0) Eos % (Auto) 1.2 % % (0.6-7.6) Baso % (Auto) 0.7 % % (0.3-1.7) Nucleat RBC Rel Count 0.0 % % (0.0-0.2) Absolute Neuts (auto) 3.51 10^3/uL 10^3/uL (1.70-6.50) Absolute Lymphs (auto) 1.82 10^3/uL 10^3/uL (1.00-3.00) Absolute Monos (auto) 0.57 10^3/uL 10^3/uL (0.30-0.80) Absolute Eos (auto) 0.07 10^3/uL 10^3/uL (0.03-0.40) Absolute Basos (auto) 0.04 10^3/uL 10^3/uL (0.02-0.10) Absolute Nucleated RBC 0.00 10^3/uL 10^3/uL (0-0.01) Immature Gran % 0.2 % % (0.0-1.1) Immature Gran # 0.01 10^3/uL 10^3/uL (0.00-0.10) POC Sodium Sodium POC Potassium Potassium POC Chloride Chloride Carbon Dioxide POC Total CO2 Anion Gap POC BUN BUN Creatinine POC Creatinine Estimated GFR Glucose POC Glucose Calcium Urine Color Urine Appearance Urine pH Ur Specific [place] Urine Protein Urine Ketones Urine Blood Urine Nitrate Urine Bilirubin Urine Urobilinogen Ur Leukocyte Esterase Urine RBC Urine WBC Ur Epithelial Cells Urine Glucose Point of Care Test Results: Chemistry 04/27/18 11:52 POC Sodium 136 mEq/L mEq/L (135-145) POC Potassium 3.9 mEq/L mEq/L (3.3-5.0) POC Chloride 101 mEq/L mEq/L (97-110) POC Total CO2 24 mEq/L mEq/L (22-31) POC BUN 25 mg/dL H mg/dL (7-23) POC Creatinine 0.9 mg/dL mg/dL (0.7-1.3) POC Glucose 84 mg/dL mg/dL (70-100) ISTAT H&H 04/27/18 11:52 POC Hgb 15.6 gm/dL gm/dL (13.7-17.5) POC Hct 46 % % (40-51) Departure - Departure Disposition: Home, Routine, Self-Care Clinical Impression: Abdominal pain Qualifiers: Abdominal location: left lower quadrant Qualified Code(s): R10.32 - Left lower quadrant pain Condition: Good Instructions: Abdominal Pain (ED) Additional Instructions: 1. You can try to treat constipation with increasing fluid and fiber intake or something like Miralax. Use as directed on the packaging. 2. Follow up with your primary care provider in the next few days. You may require spine evaluation as this could be another source of the pain. 3. Return to the ED for any worsening of condition. Referrals: [facility] [Primary Care Provider] - As per Instructions Report Scribed for: Ben Montes Report Scribed by: Ivonne Payton Date of Report: 04/27/18 Time of Report: 11:39
[2018-04-27] MEDS ORDERED: NS 1,000 ML IV ONE (11:43)
[2018-04-27 11:57] LABS: PLATELET COUNT 189 10^3/uL (150-400)
[2018-04-27] MEDS ORDERED: IOHEXOL 300 mgI/ML (OMNIPAQUE) 150 ML BTL IV ONE (12:17)
[2018-04-27 14:05] VITALS: BP 167/85
== END 2018-04-27 14:04 | disposition home or self-care (01) ==
DX: R10.32 Left lower quadrant pain (principal); K44.9 Diaphragmatic hernia without obstruction or gangrene; E86.9 Volume depletion, unspecified; E03.9 Hypothyroidism, unspecified
CPT/HCPCS: 74177; 96360; 99285; Q9967; 82435-PO; 82565-PO; 82947-PO; 84132-PO; 84295-PO; 84520-PO; 85014-ER

== ENCOUNTER → 2018-05-24 | Outpatient (CLI) | payer OTHER | LOC: FIMAGING 12:54 ==

== ENCOUNTER → 2018-05-24 | Outpatient (CLI) | payer OTHER | LOC: FIMAGING 13:02 | PROVIDERS: ATTEND Physician Assistant | DX: M51.36 Other intervertebral disc degeneration, lumbar region (principal); M48.061 Spinal stenosis, lumbar region without neurogenic claudication; Z98.1 Arthrodesis status ==

== ENCOUNTER → 2018-06-24 | Outpatient (CLI) | payer OTHER | LOC: FIMAGING 09:00 | PROVIDERS: ATTEND Physician Assistant | DX: M54.12 Radiculopathy, cervical region (principal) ==

== ENCOUNTER 2018-08-04 12:00 | Inpatient (IN) | payer OTHER ==
[2018-08-04] MEDS ORDERED: ONDANSETRON 4 MG/2 ML VIAL IVP ONE (12:30)
[2018-08-04] MEDS ORDERED: NS 1,000 ML IV ONE (12:30)
[2018-08-04 12:40] LABS: PLATELET COUNT 232 10^3/uL (150-400)
--- NOTE | 2018-08-04 12:43 | EDPHY ---
H & P Time Seen by Provider: 08/04/18 12:10 HPI/ROS: HPI Nausea, loss of appetite, headache, generalized weakness. 88-year-old male by private vehicle with his son. This patient reports that he woke up this morning at approximately 7:00 a.m. feeling unusually fatigued in complaining of generalized weakness, nausea, loss of appetite and having a gradual onset vague and mild frontal headache. His son also reports the patient has had some word-finding difficulty. The patient endorses this and self. He denies any loss of sensation or weakness in his extremities. He has not had a cough. He denies any neck pain. No fever. No urinary complaints. ROS: Constitutional: No fever, no chills. As above. Eyes: No discharge. No changes in vision. ENT: No sore throat. No nasal congestion or rhinorrhea. Respiratory: No cough. No shortness of breath. Cardiac: No chest pain, no palpitations. Gastrointestinal: No abdominal pain, no vomiting, no diarrhea. As above. Genitourinary: No hematuria. No dysuria or increased frequency with urination. Musculoskeletal: No back pain. No neck pain. No myalgias or arthralgias. Skin: No rashes. Neurological: As above. No focal weakness or altered sensation. Past medical history: Hypothyroid, fusion surgery to the lower back years ago, recent cervical fusion surgery by Dr. Crespo about a month ago, atrial flutter, prostate cancer with prostatectomy, hiatal hernia, esophageal problems. Social history: He currently lives independently by himself but his son is with him in the room and is actively involved with his care. Nonsmoker. No alcohol. Physical Exam: General Appearance: Alert, no distress. He is hard of hearing. This patient is responding to questions appropriately and in full sentences. He intermittently has some word-finding difficulty. It is hard to tell if this is his baseline. This patient appears well-hydrated and well-nourished. Eyes: Pupils equal and round no pallor or injection. No lid edema, erythema or injection. ENT, Mouth: Mucous membranes are moist. The pharyngeal tissues are unremarkable. No edema or swelling. No asymmetry suggestive of abscess. No erythema or exudates. Respiratory: There are no retractions, lungs are clear to auscultation with good air movement bilaterally. Cardiovascular: Regular rate and rhythm. No murmur. Gastrointestinal: Abdomen is soft and nontender, no masses, bowel sounds normal. No focal tenderness at McBurney's point. No Roy sign. Neurological: Motor sensory function is grossly intact. Cranial nerves are normal. Cerebellar function is normal. Skin: Warm and dry, no rashes. Musculoskeletal: Neck is supple and nontender. No pain on flexion of his neck. No CVA tenderness bilaterally. Extremities are symmetrical. All joints range without pain or impingement. Psychiatric: No agitation. No depression. Database: EKG: EKG time is 12:37 p.m.; EKG shows a narrow complex normal sinus rhythm with a ventricular rate of 93. Atrial premature complexes noted with sinus pause. Incomplete right bundle branch block. The VT, QRS, QT intervals are within normal limits. There are no ST-T wave changes indicative of ischemic or injury pattern. No evidence of right heart strain. Interpreted by me. Imaging: CT head without contrast: No acute findings. Results were discussed with staff radiologist Dr. Jhonny Tran. Chest x-ray PA and lateral: The cardiac mediastinal silhouette is unremarkable. No evidence of infiltrate or pneumothorax. No acute cardiopulmonary disease process noted. Interpreted by me. Procedures: Emergency department course: Triage vital signs reviewed. He is mildly tachycardic at 150. He is afebrile. Vital signs are otherwise unremarkable. IV was placed. He was started on IV normal saline with 500 cc to 1 L to be given over the next hour. EKG was obtained and reviewed by myself. 1:55 p.m., patient re-evaluated, resting comfortably at this time. He reports resolution of his headache. He is still having some intermittent word-finding difficulty. Results of his CT scan and emergency department workup discussed with him and his son. Results of elevated troponin reviewed and the significance of this. He will be given 324 mg of chewed aspirin. Plan for admission discussed with him and his son. I will also obtain a diffusion- weighted noncontrast MRI of his brain to evaluate for ischemic stroke. He and his son endorse. Hospitalist paged. 2:05 p.m., spoke with on-call hospitalist, case discussed in detail. Patient will be admitted under the care of the hospitalist service, Dr. Marie to the PCU. Hospitalist service to follow up on results of MRI as ordered in the emergency department. Cardiology consultation will be obtained by the hospitalist service. Differential Diagnosis: The differential diagnosis on this patient includes but is not limited to viral syndrome, hypothyroid state, food-borne illness, CVA. This represents a partial list of diagnoses considered. These considerations are based on history , physical exam, past history, reassessment and diagnostic testing. Smoking Status: Never smoked Constitutional: Initial Vital Signs Temperature (C) 37.0 C 08/04/18 12:02 Heart Rate 115 H 08/04/18 12:02 Respiratory Rate 16 08/04/18 12:02 Blood Pressure 132/94 H 08/04/18 12:02 O2 Sat (%) 94 08/04/18 12:02 O2 Delivery Mode Room Air Allergies/Adverse Reactions: No Known Allergies Allergy (Verified 04/27/18 11:13) Home Medications: Medication Instructions Recorded Metoprolol Succinate Xr [Toprol Xl 50 mg PO DAILY 11/01/15 50 mg (*)] C/E/Zn/Cu/OM3/DHA/EPA/LUT/ZEAX 1 each PO DAILY 11/21/16 [Preservision Areds 2 Softgel] Multivitamins [Multivitamin (*)] 1 each PO DAILY 11/21/16 Naproxen Sodium [Aleve 220 MG (*)] 220 mg PO BID PRN 11/21/16 traMADol [Ultram 50 mg (*)] 25 mg PO DAILY PRN 11/21/16 Enoxaparin [Lovenox 40 MG (*)] 40 mg SC DAILY syr 12/12/16 Lisinopril 5 mg PO DAILY #30 tablet 12/12/16 Sennosides/Docusate Sodium 1 - 2 tab PO BID tab 12/12/16 [Senokot-S] celeCOXIB [Celebrex (*)] 200 mg PO DAILY cap 12/12/16 oxyCODONE IR [Oxycodone Ir (*)] 5 - 10 mg PO Q3HRS PRN tab 12/12/16 traMADol [Ultram 50 mg (*)] 50 mg PO Q6HRS tab 12/12/16 DULoxetine [Cymbalta 20 MG (RX)] 20 mg PO HS 08/04/18 LORazepam [Ativan (*)] 0.5 mg PO 08/04/18 Latanoprost 0.005% [Xalatan 0.005% 0 drops EACHEYE 08/04/18 (*)] Levothyroxine [Synthroid 125 mcg 125 mcg PO DAILY06 08/04/18 (*)] Pyridostigmine [place] [Mestinon 60 mg PO QID 08/04/18 60mg (*)] Medical Decision Making - Diagnostics Imaging Results: Imaging Impressions Chest X-Ray 08/04/18 12:31 Impression: 1. No active cardiopulmonary disease seen. Head CT 08/04/18 12:31 Impression: 1. Stable mild age-related atrophy. 2. No hemorrhage, mass effect, or definite acute peripheral infarct. 3. Stable mild nonspecific hypodensities in the white matter of bilateral cerebral hemispheres. Differential diagnosis includes microvascular ischemic disease, post-infectious/post-inflammatory sequela, atypical demyelinating disease, or migraine-related sequela. Small white matter lacunar infarcts may also have this appearance. If symptoms worsen, additional imaging may be necessary. Findings discussed with Maxwell Rose MD at 13:56 hour, 08/04/2018. - Data Points Laboratory Results: Laboratory Results 08/04/18 12:20 08/04/18 12:20 08/04/18 08/04/18 08/04/18 13:20 12:50 12:20 WBC RBC Hgb Hct MCV MCH MCHC RDW Plt Count MPV Neut % (Auto) Lymph % (Auto) [place] % (Auto) Eos % (Auto) Baso % (Auto) Nucleat RBC Rel Count Absolute Neuts (auto) Absolute Lymphs (auto) Absolute Monos (auto) Absolute Eos (auto) Absolute Basos (auto) Absolute Nucleated RBC Immature Gran % Immature Gran # PT INR APTT Sodium Potassium Chloride Carbon Dioxide Anion Gap BUN Creatinine Estimated GFR Glucose Calcium Total Bilirubin Conjugated Bilirubin Unconjugated Bilirubin AST ALT Alkaline Phosphatase POC Troponin I 0.25 ng/mL H ng/mL (0.00-0.08) Troponin I Pending Total Protein Albumin TSH Urine Color YELLOW Urine Appearance CLEAR Urine pH 7.0 (5.0-7.5) Ur Specific [place] 1.011 (1.002-1.030) Urine Protein NEGATIVE (NEGATIVE) Urine Ketones TRACE H (NEGATIVE) Urine Blood NEGATIVE (NEGATIVE) Urine Nitrate NEGATIVE (NEGATIVE) Urine Bilirubin NEGATIVE (NEGATIVE) Urine Urobilinogen NEGATIVE EU EU (0.2-1.0) Ur Leukocyte Esterase NEGATIVE (NEGATIVE) Urine RBC 1-3 /hpf /hpf (0-3) Urine WBC 1-3 /hpf /hpf (0-3) Ur Epithelial Cells NONE SEEN /lpf /lpf (NONE-1+) Urine Mucus TRACE /lpf /lpf (NONE-1+) Urine Glucose NEGATIVE (NEGATIVE) 08/04/18 08/04/18 08/04/18 12:20 12:20 12:20 WBC 8.56 10^3/uL 10^3/uL (3.80-9.50) RBC 4.73 10^6/uL 10^6/uL (4.40-6.38) Hgb 14.5 g/dL g/dL (13.7-17.5) Hct 40.9 % % (40.0-51.0) MCV 86.5 fL fL (81.5-99.8) MCH 30.7 pg pg (27.9-34.1) MCHC 35.5 g/dL g/dL (32.4-36.7) RDW 13.4 % % (11.5-15.2) Plt Count 232 10^3/uL 10^3/uL (150-400) MPV 9.5 fL fL (8.7-11.7) Neut % (Auto) 79.1 % H % (39.3-74.2) Lymph % (Auto) 14.0 % L % (15.0-45.0) [place] % (Auto) 6.1 % % (4.5-13.0) Eos % (Auto) 0.1 % L % (0.6-7.6) Baso % (Auto) 0.2 % L % (0.3-1.7) Nucleat RBC Rel Count 0.0 % % (0.0-0.2) Absolute Neuts (auto) 6.77 10^3/uL H 10^3/uL (1.70-6.50) Absolute Lymphs (auto) 1.20 10^3/uL 10^3/uL (1.00-3.00) Absolute Monos (auto) 0.52 10^3/uL 10^3/uL (0.30-0.80) Absolute Eos (auto) 0.01 10^3/uL L 10^3/uL (0.03-0.40) Absolute Basos (auto) 0.02 10^3/uL 10^3/uL (0.02-0.10) Absolute Nucleated RBC 0.00 10^3/uL 10^3/uL (0-0.01) Immature Gran % 0.5 % % (0.0-1.1) Immature Gran # 0.04 10^3/uL 10^3/uL (0.00-0.10) PT 13.0 SEC SEC (12.0-15.0) INR 1.02 (0.83-1.16) APTT 36.8 SEC SEC (23.0-38.0) Sodium 126 mEq/L L mEq/L (135-145) Potassium 4.1 mEq/L mEq/L (3.5-5.2) Chloride 92 mEq/L L mEq/L (97-110) Carbon Dioxide 23 mEq/l mEq/l (22-31) Anion Gap 11 mEq/L mEq/L (6-14) BUN 22 mg/dL mg/dL (7-23) Creatinine 0.8 mg/dL mg/dL (0.7-1.3) Estimated GFR > 60 Glucose 135 mg/dL H mg/dL (70-100) Calcium 9.5 mg/dL mg/dL (8.5-10.4) Total Bilirubin 1.0 mg/dL mg/dL (0.1-1.4) Conjugated Bilirubin 0.0 mg/dL mg/dL (0.0-0.5) Unconjugated Bilirubin 1.0 mg/dL mg/dL (0.0-1.1) AST 39 IU/L IU/L (17-59) ALT 51 IU/L IU/L (21-72) Alkaline Phosphatase 72 IU/L IU/L (38-126) POC Troponin I Troponin I Total Protein 6.8 g/dL g/dL (6.3-8.2) Albumin 4.3 g/dL g/dL (3.5-5.0) TSH 1.350 uIU/mL uIU/mL (0.465-4.680) Urine Color Urine Appearance Urine pH Ur Specific [place] Urine Protein Urine Ketones Urine Blood Urine Nitrate Urine Bilirubin Urine Urobilinogen Ur Leukocyte Esterase Urine RBC Urine WBC Ur Epithelial Cells Urine Mucus Urine Glucose Medications Given: Discontinued Medications Aspirin (Aspirin) 324 mg PO EDNOW ONE Stop: 08/04/18 13:59 Last Admin: 08/04/18 14:18 Dose: 324 mg Sodium Chloride (Ns) 1,000 mls @ 0 mls/hr IV ONCE ONE; Wide Open PRN Reason: Protocol Stop: 08/04/18 12:31 Last Admin: 08/04/18 12:50 Dose: 1,000 mls Ondansetron HCl (Zofran) 4 mg IVP EDNOW ONE Stop: 08/04/18 12:31 Last Admin: 08/04/18 12:50 Dose: 4 mg Point of Care Test Results: Chemistry 08/04/18 12:50 POC Troponin I 0.25 ng/mL H ng/mL (0.00-0.08) Departure - Departure Disposition: [facility] Inpatient Acute Clinical Impression: Generalized weakness, Elevated troponin, Hyponatremia, Word finding difficulty
[2018-08-04 12:50] LABS: INR 1.02 (0.83-1.16)
[2018-08-04] MEDS ORDERED: ASPIRIN 81 MG CHEWABLE TAB PO ONE (13:58)
[2018-08-04] MEDS ORDERED: ONDANSETRON DISINTEGRATING 4 MG TAB PO PRN (14:25)
[2018-08-04] MEDS ORDERED: ONDANSETRON 4 MG/2 ML VIAL IVP PRN (14:25)
[2018-08-04] MEDS ORDERED: ACETAMINOPHEN 325 MG TAB PO PRN (14:25)
--- NOTE | 2018-08-04 14:56 | PDGENHP ---
History and Physical - Chief Complaint Word finding diffculties - History of Present Illness Phillip Cannon is a 88 yo M with a PMHx of hypothyroidism, recent cervical fusion, A Flutter, prostate cancer s/p prostatectomy, A Flutter who presents to [facility] for word finding difficulties. He reports that he woke up this AM with a frontal headache, generalized fatigue, and word finding difficulties. His son is at bedside who has helped with hx taking. Patient reports that he has a hard time getting out his words. He denies any visual/hearing changes, muscle weakness, numbness/tingling. He endorses a continued mild frontal headache that has improved since onset. He also reports feeling more tired than usual today. He denies any f/c, d/c, edema, palpitations, chest pain. He states he had a slight sore throat yesterday which has improved, but denies a cough, rhinorrhea, f/c. He does report chronic SOB for the past year or so which he reports is worse with exertion. He denies any chronic cough or wheezing associated with SOB. History Information - Allergies/Home Medication List Allergies/Adverse Reactions: No Known Allergies Allergy (Verified 04/27/18 11:13) Home Medications: Metoprolol Succinate Xr [Toprol Xl 50 mg (*)] 50 mg PO DAILY 11/01/15 [Last Taken 08/04/18] C/E/Zn/Cu/OM3/DHA/EPA/LUT/ZEAX [Preservision Areds 2 Softgel] 1 each PO DAILY [Last Taken Unknown] Multivitamins [Multivitamin (*)] 1 each PO DAILY 11/21/16 [Last Taken 08/04/18] Naproxen Sodium [Aleve 220 MG (*)] 220 mg PO BID PRN 11/21/16 [Last Taken ] Aspirin EC [Aspirin EC 81 mg (*)] 81 mg PO DAILY@16 08/04/18 [Last Taken Unknown ] LORazepam [Ativan (*)] 0.25 mg PO DAILY PRN 08/04/18 [Last Taken Unknown] Latanoprost 0.005% [Xalatan 0.005% (*)] 1 drops EACHEYE HS 08/04/18 [Last Taken Unknown] Levothyroxine [Synthroid 125 mcg (*)] 125 mcg PO DAILY@16 08/04/18 [Last Taken Unknown] Pyridostigmine [place] [Mestinon 60mg (*)] 60 mg PO TID 08/04/18 [Last Taken Unknown] traMADol [Ultram 50 mg (*)] 12.5 mg PO Q6HRS PRN 08/04/18 [Last Taken 08/02/18] I have personally reviewed and updated: family history, medical history, social history, surgical history - Past Medical History cancer Additional medical history: Hypothyroidism, A Flutter, prostate cancer - Surgical History Reports: cancer surgery, spinal surgery - Family History Positive for: non-pertinent - Social History Smoking Status: Never smoked Alcohol Use: None Drug Use: None Review of Systems Review of Systems: ROS: 10pt was reviewed & negative except for what was stated in HPI & below Physical Exam Physical Exam: Temp Pulse Resp BP Pulse Ox 37.0 C 87 16 117/91 H 94 08/04/18 12:02 08/04/18 13:46 08/04/18 13:46 08/04/18 13:46 08/04/18 13:46 Constitutional: chronically ill appearing Eyes: PERRL Ears, Nose, Mouth, Throat: moist mucous membranes Cardiovascular: irregularly irregular, No edema Respiratory: no respiratory distress, clear to auscultation Gastrointestinal: soft, non-tender abdomen Genitourinary: no bladder fullness Skin: warm Musculoskeletal: full muscle strength Neurologic: AAOx3, CN II-XII Intact, No weakness, No numbness, No facial droop Psychiatric: interacting appropriately, poor memory Lab Data & Imaging Review 08/04/18 12:20 08/04/18 12:20 WBC 8.56 10^3/uL (3.80-9.50) 08/04/18 12:20 RBC 4.73 10^6/uL (4.40-6.38) 08/04/18 12:20 Hgb 14.5 g/dL (13.7-17.5) 08/04/18 12:20 Hct 40.9 % (40.0-51.0) 08/04/18 12:20 MCV 86.5 fL (81.5-99.8) 08/04/18 12:20 MCH 30.7 pg (27.9-34.1) 08/04/18 12:20 MCHC 35.5 g/dL (32.4-36.7) 08/04/18 12:20 RDW 13.4 % (11.5-15.2) 08/04/18 12:20 Plt Count 232 10^3/uL (150-400) 08/04/18 12:20 MPV 9.5 fL (8.7-11.7) 08/04/18 12:20 Neut % (Auto) 79.1 % (39.3-74.2) H 08/04/18 12:20 Lymph % (Auto) 14.0 % (15.0-45.0) L 08/04/18 12:20 [place] % (Auto) 6.1 % (4.5-13.0) 08/04/18 12:20 Eos % (Auto) 0.1 % (0.6-7.6) L 08/04/18 12:20 Baso % (Auto) 0.2 % (0.3-1.7) L 08/04/18 12:20 Nucleat RBC Rel Count 0.0 % (0.0-0.2) 08/04/18 12:20 Absolute Neuts (auto) 6.77 10^3/uL (1.70-6.50) H 08/04/18 12:20 Absolute Lymphs (auto) 1.20 10^3/uL (1.00-3.00) 08/04/18 12:20 Absolute Monos (auto) 0.52 10^3/uL (0.30-0.80) 08/04/18 12:20 Absolute Eos (auto) 0.01 10^3/uL (0.03-0.40) L 08/04/18 12:20 Absolute Basos (auto) 0.02 10^3/uL (0.02-0.10) 08/04/18 12:20 Absolute Nucleated RBC 0.00 10^3/uL (0-0.01) 08/04/18 12:20 Immature Gran % 0.5 % (0.0-1.1) 08/04/18 12:20 Immature Gran # 0.04 10^3/uL (0.00-0.10) 08/04/18 12:20 PT 13.0 SEC (12.0-15.0) 08/04/18 12:20 INR 1.02 (0.83-1.16) 08/04/18 12:20 APTT 36.8 SEC (23.0-38.0) 08/04/18 12:20 Sodium 126 mEq/L (135-145) L 08/04/18 12:20 Potassium 4.1 mEq/L (3.5-5.2) 08/04/18 12:20 Chloride 92 mEq/L (97-110) L 08/04/18 12:20 Carbon Dioxide 23 mEq/l (22-31) 08/04/18 12:20 Anion Gap 11 mEq/L (6-14) 08/04/18 12:20 BUN 22 mg/dL (7-23) 08/04/18 12:20 Creatinine 0.8 mg/dL (0.7-1.3) 08/04/18 12:20 Estimated GFR > 60 08/04/18 12:20 Glucose 135 mg/dL (70-100) H 08/04/18 12:20 Calcium 9.5 mg/dL (8.5-10.4) 08/04/18 12:20 Total Bilirubin 1.0 mg/dL (0.1-1.4) 08/04/18 12:20 Conjugated Bilirubin 0.0 mg/dL (0.0-0.5) 08/04/18 12:20 Unconjugated Bilirubin 1.0 mg/dL (0.0-1.1) 08/04/18 12:20 AST 39 IU/L (17-59) 08/04/18 12:20 ALT 51 IU/L (21-72) 08/04/18 12:20 Alkaline Phosphatase 72 IU/L (38-126) 08/04/18 12:20 POC Troponin I 0.25 ng/mL (0.00-0.08) H 08/04/18 12:50 Troponin I 0.268 ng/mL (0.000-0.034) H 08/04/18 12:20 Total Protein 6.8 g/dL (6.3-8.2) 08/04/18 12:20 Albumin 4.3 g/dL (3.5-5.0) 08/04/18 12:20 TSH 1.350 uIU/mL (0.465-4.680) 08/04/18 12:20 Urine Color YELLOW 08/04/18 13:20 Urine Appearance CLEAR 08/04/18 13:20 Urine pH 7.0 (5.0-7.5) 08/04/18 13:20 Ur Specific [place] 1.011 (1.002-1.030) 08/04/18 13:20 Urine Protein NEGATIVE (NEGATIVE) 08/04/18 13:20 Urine Ketones TRACE (NEGATIVE) H 08/04/18 13:20 Urine Blood NEGATIVE (NEGATIVE) 08/04/18 13:20 Urine Nitrate NEGATIVE (NEGATIVE) 08/04/18 13:20 Urine Bilirubin NEGATIVE (NEGATIVE) 08/04/18 13:20 Urine Urobilinogen NEGATIVE EU (0.2-1.0) 08/04/18 13:20 Ur Leukocyte Esterase NEGATIVE (NEGATIVE) 08/04/18 13:20 Urine RBC 1-3 /hpf (0-3) 08/04/18 13:20 Urine WBC 1-3 /hpf (0-3) 08/04/18 13:20 Ur Epithelial Cells NONE SEEN /lpf (NONE-1+) 08/04/18 13:20 Urine Mucus TRACE /lpf (NONE-1+) 08/04/18 13:20 Urine Glucose NEGATIVE (NEGATIVE) 08/04/18 13:20 Assessment & Plan Assessment: Word finding difficulty (Acute) - Started at approx. 7 AM this morning with associated fatigue, nausea, frontal GURROLA - Continued upon admission, out of window for tPA (>4.5 hours since symptom onset) - Differential includes TIA vs. CVA vs. Temporary Expressive Aphasia vs. Medications (on tramadol, ativan at home) vs. Ongoing dementia - CT Head w/o IVC on admission with no acute findings, reports stable mild hypodensities in white matter b/l - MRI brain pending to further evaluate - Neurology consult placed for further evaluation and management - Will continue ASA 81 mg, check Lipid panel, initiate Statin if indicated - TTE ordered as well Elevated troponin (Acute) - POC Trop 0.25, repeat Trop 0.268, representing myocardial ischemia vs. ischemic stroke - Patient denies any chest pain/discomfort, does report sore throat? - No hx of CAD per patient - Discussed with Cardiology, Dr. Reyna, who recommends initiating anticoagulation with Hep gtt, perform TTE, and trend cardiac enzymes, he will see patient in the AM - Continue ASA 81 mg Generalized weakness (Acute) - Possibly in setting of CVA vs. myocardial ischemia, workups as above - PT/OT/REAL ESTATE LEASING MANAGER ordered to further evaluate Hyponatremia (Acute) - Na 126 on admission, reports low Na diet at home - Appears chronic, s/p 1L NS in the ED - Will repeat in the AM A Flutter - Appears to be in A Flutter on admission - Continue home Metoprolol - AC as above with Heparin gtt, consider transitioning to oral AC for CHADsVasc ~2 given age - Monitor on telemetry Hypothyroidism - Continue home Synthroid - TSH WNL on admission FEN: NPO until MRI, Regular if no concerning findings DVT PPx: Heparin gtt if MRI showing no hemorrhagic component Code: DNR Dispo: Admit to Observation
--- NOTE | 2018-08-04 14:58 | ASMTCMCOM ---
CM Note CM Note Notes: Pt presented to the Emergency Department with complaints of generalized weakness, nausea and a headache. Chart reviewed. History includes hypothyroid, cervical fusion, back pain, aflutter, prostate cancer with prostatectomy, dysphagia and a hiatal hernia. Pt is single and lives independently. He is accompanied by his son. Pt to be admitted for further observation and evaluation. Discharge needs remain unclear at this time. CM will continue to follow. Discharge Plan: To be determined Date Signed: 08/04/2018 02:57 PM Electronically Signed By:Erica Bergman RN
[2018-08-04] MEDS ORDERED: traMADol 50 MG TAB PO PRN (15:16)
[2018-08-04] MEDS ORDERED: HEPARIN 10,000 UNIT/10 ML MDV (1,000 UNIT/ML) IVP PRN (16:37)
[2018-08-04] MEDS: PYRIDOSTIGMINE BROMIDE 60 MG TAB PO SCH ×2 (17:09→20:46)
[2018-08-04] MEDS: LEVOTHYROXINE 125 MCG TAB PO SCH (17:09)
[2018-08-04] MEDS: hydrALAZINE 20 MG/ML VIAL IVP PRN (17:15)
[2018-08-04] MEDS: METOPROLOL SUCCINATE XR 50 MG TAB PO SCH (17:19)
[2018-08-04] MEDS: HEPARIN/DEXTROSE 500 ML IV SCH (17:20)
[2018-08-04] MEDS: LATANOPROST 0.005% 2.5 ML OPHT DROPS EACHEYE SCH (20:46)
[2018-08-05] MEDS ORDERED: ENOXAPARIN 40 MG/0.4 ML SYR SC SCH (09:00)
[2018-08-05] MEDS ORDERED: METOPROLOL SUCCINATE XR 50 MG TAB PO SCH (09:00)
[2018-08-05] MEDS: PRESERVISION AREDS2 FORMULA EYE VIT 1 EACH PO SCH (09:21)
[2018-08-05] MEDS: PYRIDOSTIGMINE BROMIDE 60 MG TAB PO SCH ×3 (09:21→20:37)
[2018-08-05] MEDS: ASPIRIN 81 MG CHEWABLE TAB PO SCH (09:21)
[2018-08-05] MEDS: METOPROLOL SUCCINATE XR 50 MG TAB PO SCH (09:21)
--- NOTE | 2018-08-05 12:27 | ECHO ---
[email or web address] [address] [address] Main: [phone] Echocardiography Examination Transthoracic Name: JAMA LYNN MR#: [id number] Study Date: 08/05/2018 Study Time: 10:52 AM Date of : 1930 Age: 88 year(s) Height: 185.4 cm (73 in.) Weight: 70.31 kg (155 lb.) BSA: 1.93 m2 Gender: Male Examination: Echo Contrast: Image Quality: Fair Rhythm: Normal sinus rhythm Heart Rate: 75 bpm BP: / Indication: Shortness of breath Procedure Staff Referring Physician: Workers Compensation Paralegal: Marco A Meza RDCS Reading Physician: Neftali Reyna MD Requesting Provider: Ordering Physician: Mayo Marie Indication: Shortness of breath Measurements Chambers AV/MV Label Value Normal Value Label Value Normal Value LVOT Vmax 0.74 m/s (0.7m/s - 1.1m/s) AV PGmax 5 mmHg LVOT VTI 17.1 cm (18cm - 22cm) AV PGmean 3 mmHg LVDd, MM 4.4 cm (4.2cm - 5.9cm) AV Vmax 1.09 m/s LVDd, 2D 4.3 cm (4.2cm - 5.9cm) MV E Vmax 0.61 m/s LVDs, MM 3 cm (2cm - 3.8cm) MV A Vmax 0.38 m/s LVDs, 2D 3.1 cm (2.1cm - 4cm) MV E/A 1.61 IVSd, MM 1 cm (0.6cm - 0.9cm) MV E/E' lateral 6.7 IVSd, 2D 0.9 cm (0.6cm - 1.1cm) MV E/E' septal 12.8 (0.45 - 1.25) LVPWd, MM 1.1 cm (0.6cm - 1cm) MV E' septal 0.05 m/s LVPWd, 2D 1 cm (0.6cm - 1cm) MR Vmax 3.87 m/s LVEF, 2D 52 % (54% - 74%) MV E' lateral 0.09 m/s LVOT PGmean 1 mmHg MV E/E' mean 8.71 LVOT Vmean 0.51 m/s MV E' mean 0.07 m/s LADs, 2D 3.3 cm (3cm - 4cm) TV/PV Additional Vessels Label Value Normal Value Label Value Normal Value RA Pressure 5 mmHg AoRoot, MM 2.7 cm (2.2cm - 3.7cm) RVSP 32 mmHg TR Pmax 27 mmHg TR Vmax 2.61 m/s Patient: JAMA LYNN Study Date: 08/05/2018 Page 1 of 2 10:52 AM Conclusions Normal LV function, LVEF 65%. Trivial MR and TR. No pericardial effusion. Findings Left Ventricle: Off axis views were obtained due to pectus excavatum. . Left ventricle is normal in size. The EF is visually estimated to be 65 %. Left ventricle wall thickness is normal. Diastolic Dysfunction is indeterminate. Right Ventricle: Normal size right ventricle. Right ventricular systolic function is normal. Left Atrium: The left atrium is normal in size. Right Atrium: The right atrium size is at the upper limits of normal. Mitral Valve: Mitral valve appears structurally normal. Trivial to mild mitral regurgitation. Aortic Valve: Aortic leaflets are normal in appearance and function. No aortic valve regurgitation. There is no aortic stenosis. Tricuspid Valve: Tricuspid valve leaflets are structurally normal. Trivial tricuspid regurgitation. Right Ventricular systolic pressure is measured at 32 mmHg. Pulmonary artery pressure normal. Pulmonic Valve: Pulmonic leaflets are structurally normal. No pulmonic valve regurgitation is evident. Aorta: The aorta is normal. The aortic root size in M-mode measures 2.7 cm. Aorta Measurements AoRoot, MM is 2.7 cm. Pericardium: No pericardial effusion. Exam Details Procedure Ordered: Echo Image Quality: Fair (No Signature Object) Patient: JAMA LYNN Study Date: 08/05/2018 Page 2 of 2 10:52 AM [id number]
--- NOTE | 2018-08-05 14:31 | HOSPPROG ---
Hospitalist Progress Note Assessment/Plan: Elevated troponin (Acute) - POC Trop 0.25, repeat Trop 0.268 on admission trended down to 0.11 this AM - Patient denies any chest pain/discomfort, does report sore throat? - No hx of CAD per patient - Discussed with Cardiology, Dr. Reyna, who recommended continuing anticoagulation with Hep gtt, will perform MPS in the AM to further evaluate for ischemia - Continue ASA 81 mg Word finding difficulty (Acute) - Started at approx. 7 AM on morning of admission with associated fatigue, nausea, frontal GURROLA - Continued upon admission, out of window for tPA (>4.5 hours since symptom onset) - Differential includes TIA vs. CVA vs. Temporary Expressive Aphasia vs. Medications (on tramadol, ativan at home) vs. Ongoing dementia - CT Head w/o IVC on admission with no acute findings, reports stable mild hypodensities in white matter b/l - MRI brain performed with no acute findings - Neurology consulted this AM, discussed with Dr. Mtz, no further w/u indicated at this time - Will continue ASA 81 mg Generalized weakness (Acute) - Possibly in setting of CVA vs. myocardial ischemia, workups as above - PT/OT/CARBONATING STONE CLEANER ordered to further evaluate Hyponatremia (Acute) - Na 126 on admission, reports low Na diet at home, improved to 132 this AM - Appears chronic, s/p 1L NS in the ED - continue to monitor A Flutter - Continue home Metoprolol - AC as above with Heparin gtt, consider transitioning to oral AC for CHADsVasc ~2 given age - Monitor on telemetry Hypothyroidism - Continue home Synthroid - TSH WNL on admission FEN: Regular DVT PPx: Heparin gtt Code: FULL Dispo: Pending clinical course Subjective: Pt reports improvement in word finding difficultuies this AM Objective: Vital Signs Temp Pulse Resp BP Pulse Ox 36.9 C 75 15 159/89 H 97 08/05/18 06:26 08/05/18 12:00 08/05/18 12:00 08/05/18 12:00 08/05/18 12:00 Laboratory Results 08/05/18 03:30 08/05/18 03:30 08/04/18 08/05/18 08/06/18 05:59 05:59 05:59 Intake Total 1550 Output Total 1100 Balance 450 PT 13.0 SEC (12.0-15.0) 08/04/18 12:20 INR 1.02 (0.83-1.16) 08/04/18 12:20 - Physical Exam Constitutional: no apparent distress Eyes: PERRL Ears, Nose, Mouth, Throat: moist mucous membranes Cardiovascular: regular rate and rhythym Respiratory: no respiratory distress Gastrointestinal: soft, non-tender abdomen Genitourinary: no bladder fullness Skin: warm Musculoskeletal: full muscle strength Neurologic: AAOx3, CN II-XII Intact Psychiatric: interacting appropriately ICD10 Worksheet Patient Problems: Problems Problem Status Onset Elevated troponin Acute Generalized weakness Acute Hyponatremia Acute Word finding difficulty Acute Back pain Acute Dysphagia Acute chronic disease mgmt/transitional care Acute
--- NOTE | 2018-08-05 14:37 | GCON ---
[f rep st] CONSULTATION NEUROLOGIC CONSULTATION REFERRING PHYSICIAN: Mayo Marie DO HISTORY: The patient is an 88-year-old gentleman who I am asked to see in neurologic consultation re garding some changes yesterday when he woke up around 7 a.m. in which he said he felt globally weak a nd was having a little trouble with some word finding. This was confirmed by his son at the time. Margo duff is not currently in the room. The patient has had evaluations within our practice over the last 3 years for various degrees of weakness and unsteadiness. I have reviewed all the office records from Dr. 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 He has also had neuro muscular consultations at the [facility] with nonspecific EMG findings and some degree of peripheral neuropat hy is known. He has cervical and lumbar spine disease and has had surgical treatment for above with the cervical more recently. There has been a feeling that some of his unsteadiness is multifactorial in nature with neuropathy and possible radiculopathy or myelopathic changes. Since admission, he does not continue to express any significant headache or word-finding problems an d feels essentially back to his baseline. He had some mild hyponatremia on admission, which is not m ore than a few points lower than what he has often run over the last several years. He was thought t o have possible atrial flutter, although that is equivocal from the reporting I am getting so far. [facility] emergency room doctor did not see atrial flutter and the cardiac nurse practitioner, so far, says she does not see atrial flutter on monitor, but is just evaluating him. In the interim, however, he was placed on heparin infusion and continuing on aspirin for now which he was on prior to coming to [facility]. The Mestinon is something he has taken intermittently over the last few years for the p ossibility of a neuromuscular junction defect, specifically the question of a presynaptic defect asso ciated with Lambert-Eaton syndrome; however, the benefit of that is unclear. He is not currently com plaining of any double vision. He is on tramadol for pain. He says he has not had any escalation in doses of medication. ALLERGIES: None. PAST MEDICAL HISTORY: As outlined above. Also, prostate cancer, hypothyroidism. SOCIAL HISTORY: No smoking or alcohol or drug use. 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. He is . His son is his closest contact currently. He is inde pendent. REVIEW OF SYSTEMS: 10-point review of systems unremarkable except for that noted above. PHYSICAL EXAM: VITAL SIGNS: Highest documented blood pressure has been 210/123, but currently 114/6 6, temperature 36.9. Heart rate of 70, respirations 15. Currently in sinus rhythm on monitor. GENE RAL: He is well developed, in no acute distress. NECK: Supple. No bruits or masses. CARDIAC: Re gular rate and rhythm. No murmur. GENERAL: He is awake, alert, oriented and able to communicate ef fectively with no obvious cognitive impairment. HEENT: Pupils 3 mm and reactive. Extraocular movem ents intact. Normal facial sensation and strength. NEURO: Motor exam: Normal muscle bulk and tone with minimal proximal weakness. He has some distal sensory deficits. Reflexes hypoactive. STUDIES: Head CT and MRI show nonspecific white matter changes, but no evidence of hemorrhage or acu te stroke. His is LDL cholesterol 85. The troponin on admission 0.268 is decreased now to 0.11. Ur inalysis unremarkable. Unremarkable CBC. Patient's NIH Stroke Scale is 0. IMPRESSION: Total unit time is 70 minutes. This patient had experienced a change yesterday morning when he woke up where he had some global weakness and a little bit of word-finding difficulties witho ut focal neurologic complaints otherwise. His symptoms have now resolved back to baseline. A transi ent ischemic attack is a possibility, although I think that may be less likely than mild nonspecific encephalopathy with some hyponatremia. He would not want to pursue endarterectomy or procedures such as that, so I do not think we need to do further vascular imaging. With the equivocal history, I do not feel statin therapy is clearly indicated. With regard to the cardiac status, unless Cardiology feels there is definite atrial flutter or rhythm disturbance, then I would not say he has to have ful l anticoagulation from a neurologic standpoint. I would recommend daily aspirin continue. His neuro muscular condition has also been equivocal without definitive diagnosis of Lambert-Eaton syndrome and the feeling is that it probably is not that after multiple evaluations and more recent repeatedly ne gative antibody testing for defect of neuromuscular transmission. I would agree that some of his uns teadiness is likely multifactorial with peripheral neuropathy on exam as well as his history of lumba r spine disease. He has had hip replacement and also cervical spine disease. Overall, I think he ca n be discharged from a neurologic standpoint, but defer to Cardiology and the medicine team for the n eed of any other workup. He can follow up as an outpatient with Dr. Brody for neurologic questions in the future. I will sign off but please contact me with any further questions. /[id number]
[2018-08-05] MEDS: LEVOTHYROXINE 125 MCG TAB PO SCH (16:04)
[2018-08-05] MEDS: HEPARIN/DEXTROSE 500 ML IV SCH (16:04)
--- NOTE | 2018-08-05 16:59 | GCON ---
[f rep st] CONSULTATION DATE OF CONSULTATION: 08/05/2018 INDICATIONS: Dr. Marie has asked us to evaluate patient due to elevated troponins and possible arrhythmia. HISTORY OF PRESENT ILLNESS: The patient is an 88-year-old man with a history of hypothyroidism, cervical fusion, prostate cancer status post prostatectomy, possible atrial flutter. He presented to the ER yesterday morning with a general feeling of fatigue and weakness as well as a headache and word finding difficulty. He reports that on Monday he felt like he was coming down with a virus. He had a sore throat and he felt generally "foggy." Then Monday morning he woke up with a headache and more fatigue. He himself said that he did not notice word finding difficulty. However, his son thought that his word finding difficulty was more pronounced than usual. He denies any other focal neurological symptoms such as paralysis, weakness, numbness, tingling or vision changes. He has not had any kind of chest pain, pressure, tightness or shortness of breath. He denies any lower extremity edema. He does, however, admit to not doing too much exercise. He has not had any symptoms of a GI illness nor symptoms of urinary tract infection such as pain, burning, frequency or hematuria. He started feeling better yesterday evening as his dinner arrived. He feels pretty much back to his normal baseline today. 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 ALLERGIES: No known allergies. HOME MEDICATIONS: Metoprolol succinate 50 mg daily. PreserVision daily. Multivitamin daily. Naproxen twice a day p.r.n. Aspirin 81 mg daily. Lorazepam 0.25 mg p.r.n. Latanoprost 0.005% 1 drop each eye. Levothyroxine 125 mcg daily. Mestinon 60 mg p.o. three times daily. REVIEW OF SYSTEMS: 10-point review of systems negative except for what is included in the HPI. PHYSICAL EXAMINATION: VITAL SIGNS: Blood pressure is 125/69, heart rate is 80 , temperature is 36.9, O2 saturation on room air is 93%. GENERAL: He is alert and oriented, sitting up in bed, in no acute distress. NECK: Supple. Carotid pulses +2 bilaterally. No bruits appreciated. CARDIAC: He has pectus excavatum. Regular rate and rhythm without a murmur, rub, or gallop. LUNGS: Clear to auscultation. ABDOMEN: Soft and nontender. EXTREMITIES: Warm. No discoloration. No lower extremity edema. NEUROLOGICAL: He is alert and oriented x3. No weakness. No facial droop. Appropriate affect. LAB WORK: Labs: TSH is 1.35, WBC is 6.86, hemoglobin is 12, hematocrit 34, platelets 181. Sodium 132, potassium 3.6, chloride 103, bicarb 23, BUN 25, creatinine is 0.8. Glucose is 99. Total cholesterol is 153, triglycerides are 37, LDL is 85, HDL is 61. Troponin is 0.268, and 0.111 and the 3rd one is pending. A head CT without IVC demonstrates no acute findings and stable mild hypodensities bilaterally. Brain MRI demonstrates no acute injury. There is white matter change bilaterally and generalized cerebral atrophy. EKG demonstrates sinus rhythm with PACs and incomplete right bundle branch block , heart rate of 93 beats per minute and no acute ST-T wave changes. Chest x-ray: No acute cardiopulmonary process. Echocardiogram demonstrates normal ejection fraction of 65% with trivial MR and TR. ASSESSMENT AND PLAN: 1. Word finding difficulty of unknown etiology. Differential diagnosis includes TIA versus CVA, although head scans do not indicate a CVA or acute process. so these are less likely. Potentially symptoms are related to hyponatremia. He did present with a sodium of 126; however, his usual sodium is in the [id number]. He is feeling better and has no word finding issues today or other neurological symptoms. 2. Elevated troponin. Differential diagnosis includes myocardial ischemia versus ischemic stroke. He has not had any chest pain or shortness of breath. His EKG does not demonstrate any acute ST-T wave changes. His echocardiogram does not demonstrate any wall motion abnormalities and he has a normal ejection fraction. Plan is to keep him overnight and do a Lexiscan stress test for further risk stratification in the morning. He will remain on heparin gtt due to elevated troponins. 3. History of atrial fibrillation. He has been seen by Dr. Mcdonough at [facility] in the past; the last visit was June 08, 2011. In this note, atrial fibrillation is noted as a history; however, there is no documentation of how this was diagnosed. His EKG in the ER demonstrated sinus rhythm with PACs. His telemetry has not demonstrated any atrial flutter or atrial fibrillation. He is at risk for this given his age. Consider long-term monitoring as an outpatient. He is currently on heparin which we will keep him on overnight due to his elevated troponins. 4. Hyponatremia. His sodium has increased back to his baseline of 132. Patient history, assessment and plan were all reviewed with Dr. Reyna. 60 minutes spent with patient and reviewing records. /[id number]/MODL MTDD
[2018-08-05] MEDS: LATANOPROST 0.005% 2.5 ML OPHT DROPS EACHEYE SCH (20:37)
--- NOTE | 2018-08-05 21:40 | PDMN ---
Medical Necessity Medical necessity: Pt meets IP criteria as of 08/05/2018 per and FERNANDO MG-N ( Neurology [facility]); los > 2 mn for ongoing workup of word finding difficulty, generalized weakness, hyponatremia, and elevated troponin; requiring cardiology consultation, neurology consultation, serial labs, heparin gtt, and PT/OT/DIRECT SERVICE PROVIDER. Hx atrial flutter and hypothyroidism.
--- NOTE | 2018-08-05 23:41 | CPEKG ---
Test Reason : OPEN Blood Pressure : / mmHG Vent. Rate : 093 BPM Atrial Rate : 090 BPM P-R Int : 194 ms QRS Dur : 115 ms QT Int : 363 ms P-R-T Axes : 064 039 269 degrees QTc Int : 452 ms Sinus rhythm Atrial premature complexes Sinus pause Incomplete right bundle branch block Confirmed by Maxwell Rose ([id number] on 08/05/2018 11:41:07 PM Referred By: Maxwell Rose Confirmed By:Maxwell Rose
[2018-08-06 07:31] VITALS: BP 184/101
[2018-08-06] MEDS: ASPIRIN 81 MG CHEWABLE TAB PO SCH (07:45)
[2018-08-06] MEDS: PRESERVISION AREDS2 FORMULA EYE VIT 1 EACH PO SCH (07:45)
[2018-08-06] MEDS: PYRIDOSTIGMINE BROMIDE 60 MG TAB PO SCH (07:45)
[2018-08-06] MEDS: hydrALAZINE 20 MG/ML VIAL IVP PRN (07:45)
[2018-08-06] MEDS: METOPROLOL SUCCINATE XR 50 MG TAB PO SCH (07:45)
[2018-08-06] MEDS ORDERED: REGADENOSON 0.4 MG/5 ML SYR IVP ONE (09:52)
--- NOTE | 2018-08-06 10:22 | PDCARPN ---
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 On admission, he is found to have mildly elevated troponin at 0.268 on arrival. EKG with questionable AF. My interpretation shows SR with iRBBB, and PACs. Echo from this admission shows pectus excavatum abnormality, EF 65, trivial- mild MR, RVSP 32. Plan: #. Word finding difficulty (Acute) TIA vs. CVA vs. Temporary Expressive Aphasia vs. Medications (on tramadol, ativan at home) CT head and brain MRI reviewed show no acute findings Neurology consult reviewed LDL 85 not on statin Continue ASA/ full AC not indicated at present time #. Elevated troponin (Acute) Trop initially 0.268 -> 0.11 -> 0.022 Possibly from ischemic stroke Echo without WMA Pt was to have inpatient MPI but declines it #. Generalized weakness (Acute) PT/OT evals reviewed with recommendations of home care #. Hyponatremia (Acute) This may be etiology of his weakness Now improved #. PA Flutter Mentioned in previous note from 2012 (Dr. Letha Mcdonough) No cardiac follow up since 2011 Will plan for 30-day monitor with low threshold to start AC if AF seen given current presentation Safe for D/C today. [facility] will plan to follow pt in next few weeks. [employer] 1 month monitor ordered. 08/06/18 10:23 Subjective: Feels back to baseline. Reviewed/Discussed With: hospitalist (Dr. Marie) Objective: Vital Signs (8 Hrs) Temp Pulse Resp BP Pulse Ox 08/06/18 07:25 97.4 F 74 14 184/101 H 94 08/06/18 04:00 97.3 F 82 14 167/85 H 95 Intake/Output (24 Hrs) 08/05/18 08/06/18 08/07/18 05:59 05:59 05:59 Intake Total 1878 Output Total 650 350 Balance 1228 -350 Intake: Oral (ml) 1500 IV Infused (ml) 378 Heparin/Dextrose 500 ml @ 378 Per Protocol IV CONT JOLENE Rx#:[id number] Output: Urine (ml) 650 350 Toilet 150 Urinal 500 350 Other: Intake Quantity Yes Sufficient Number of Voids Toilet 1 Urinal 3 1 Number of Stools Toilet 1 Result Diagrams: 08/06/18 06:35 08/06/18 06:35 Cardiac Labs: Cardiac Lab Results (72 Hrs) 08/06/18 06:35 Troponin I 0.022 Telemetry: reviewed/ SR PACs/ occasional junctional beats - Physical Exam Constitutional: no apparent distress Eyes: anicteric sclera Ears, Nose, Mouth, Throat: moist mucous membranes Cardiovascular: regular rate and rhythm, No systolic murmur Respiratory: clear to auscultate bilat, no crackles Gastrointestinal: normoactive bowel sounds, no tenderness Skin: no rashes, no abrasions, no edema Neurologic: AAOx3 Psychiatric: cooperative, interactive, following commands ICD10 Worksheet Patient Problems: Problems Problem Status Onset Elevated troponin Acute Generalized weakness Acute Hyponatremia Acute Word finding difficulty Acute Back pain Acute Dysphagia Acute chronic disease mgmt/transitional care Acute
--- NOTE | 2018-08-06 11:09 | ASMTLACE ---
[facility] Length of stay for Answers: 2 days current admission Acuity / Level of Answers: Yes Care: Did the patient have an inpatient admission? Comorbidities - select Answers: Any tumor (including all that apply lymphoma or leukemia) Other Notes: Hypothyroid, back pain, cervical fusion, aflutter, prost ate cancer with prostatectomy, dysphagi a, hiatal hernia # of Emergency department Answers: 1-2 visits in the last 6 months Score: 9 Date Signed: 08/06/2018 11:08 AM Electronically Signed By:Opal Posada RN
--- NOTE | 2018-08-06 11:10 | ASMTDCNOTE ---
Case Management Discharge Discharge Order Complete? Answers: Yes Patient to Obtain Answers: Independently Medications Transportation Arranged Answers: Family/Friends Discharge Comments Notes: Patient refusing ECHO and is stable for d/c per cardiology and hospitalist. He will follow up w [facility] as an outpatient. PT/OT have cleared him for home, as well. Son to transport. Date Signed: 08/06/2018 11:09 AM Electronically Signed By:Opal Posada RN
--- NOTE | 2018-08-06 12:52 | PDDCSUM ---
Discharge Summary Discharge Summary: Date of Admission: 08/04/2018 Date of Discharge: 08/06/2018 Consults: Cardiology Procedures: MRI Brain, CT Head, TTE Consults: Cardiology, Neurology Hospital Course Problem List: Elevated troponin (Acute) - POC Trop 0.25, repeat Trop 0.268 on admission trended down to 0.11 - Patient denies any chest pain/discomfort - No hx of CAD per patient - Discussed with Cardiology, recommended Heparin gtt and MPS, patient ultimately refused MPS, instructed to f/u with cardiology as an OP - Continue ASA 81 mg Word finding difficulty (Acute) - Started at approx. 7 AM on morning of admission with associated fatigue, nausea, frontal GURROLA - Continued upon admission, out of window for tPA (>4.5 hours since symptom onset) - Differential includes TIA vs. CVA vs. Temporary Expressive Aphasia vs. Medications (on tramadol, ativan at home) vs. Ongoing dementia - CT Head w/o IVC on admission with no acute findings, reports stable mild hypodensities in white matter b/l - MRI brain performed with no acute findings - Neurology consulted, discussed with Dr. Mtz, no further w/u indicated at this time - Will continue ASA 81 mg Generalized weakness (Acute) - Possibly in setting of CVA vs. 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
== END 2018-08-06 12:00 | disposition home or self-care (01) | DRG 641 ==
LOC: INTOOBSV 14:10 → F2N 16:03 → OBSVTOIN 08-05 14:31
PROVIDERS: ADMIT Internal Medicine; ATTEND Internal Medicine
DX: E87.1 Hypo-osmolality and hyponatremia (principal); I48.92 Unspecified atrial flutter; R47.9 Unspecified speech disturbances; R79.89 Other specified abnormal findings of blood chemistry; E86.9 Volume depletion, unspecified; E03.9 Hypothyroidism, unspecified; Z66 Do not resuscitate; Z98.1 Arthrodesis status; Z85.46 Personal history of malignant neoplasm of prostate
CPT/HCPCS: 70551-PN; 84484-ER; 85520-90; 92610-GN; 96374; 97161-GP; 97165-GO; 97530-GP; 97535-GO; G0378; J0360; J1644; J2405; J2785

== ENCOUNTER → 2018-08-24 | Outpatient (CLI) | payer OTHER | LOC: FIMAGING 14:25 ==